=== PATIENT | male | born 1965 | race Caucasian/White ===

== ENCOUNTER 2017-04-30 15:02 | Inpatient (IN) | payer OTHER ==
[2017-04-30] VITALS (8 sets, daily range): BP systolic 153–212; BP diastolic 94–111; PULSE 64–119; RESP 16–20; TEMP 97.3–98.6; O2SAT 96–99
[~2017-04-30] VITALS: Ht 182.9 cm; Wt 104.0 kg
[~2017-04-30 15:02] MED LIST: BENA25TA8 PO; EPIP0.3I IM; MEDR4PAK3 PO
[2017-04-30] MEDS ORDERED: SODIUM CHLORIDE 0.9% FLUSH 10 ML FLUSH IVF PRN ×2 (15:30)
[2017-04-30] MEDS ORDERED: cloNIDine HCL 0.2 MG TAB PO ONE ×2 (15:30)
[2017-04-30] MEDS ORDERED: ASPIRIN 325 MG TAB PO ONE ×2 (15:30)
--- NOTE | 2017-04-30 15:34 | PD ---
HPI Chief Complaint: Chest Pain Time Seen by Provider: 15:18 Travel History International Travel<30 days: No Contact w/Intl Traveler<30days: No Traveled to known affect area: No History of Present Illness HPI This patient complains of chest pain. He has spells of pain most days over the last month. Symptoms are not limited to exertion. Spells last 5-10 minutes and resolve spontaneously. Location is center sternum. He feels a pain and a pressure and tightness. Pain is not pleuritic. No fever or productive cough. He has history of hypertension and is a smoker has family history of CAD. He denies drug use. He does drink at least 3 alcoholic drink daily but often many more. No history of personal cardiac disease. Never had stress testing. He has heartburn but his chest pain is very different. No alleviating factors. Symptoms have no exacerbating factors. PFSH Past Medical History Diminished Hearing: No Hypertension: Yes Past Surgical History Other Surgery: Yes (RIGHT TESTICLE REMOVED FOR CANCER 1995) Social History Alcohol Use: Yes (DAILY) Tobacco Use: Yes (1 PACK PER DAY) Substance Use: No Allergies-Medications (Allergen,Severity, Reaction): Coded Allergies: No Known Allergies (Unverified Adverse Reaction, Unknown, 04/30/17) Reported Meds & Prescriptions Reported Meds & Active Scripts Active No Active Prescriptions or Reported Medications Review of Systems General / Constitutional: No: Fever Eyes: No: Visual changes HENT: No: Headaches Cardiovascular: Positive: Chest Pain or Discomfort Respiratory: No: Shortness of Breath Gastrointestinal: No: Abdominal Pain Genitourinary: No: Dysuria Musculoskeletal: No: Pain Skin: No Rash Neurologic: No: Weakness Psychiatric: No: Depression Endocrine: No: Polydipsia Hematologic/Lymphatic: No: Easy Bruising Physical Exam Narrative GENERAL: Well-nourished, well-developed patient in no apparent distress. SKIN: Focused skin assessment reveals no rash and nodules. Skin is Warm and dry. HEAD: Atraumatic. Normocephalic. EYES: Pupils equal and round. No scleral icterus. No injection or drainage. ENT: No nasal bleeding or discharge. Mucous membranes pink and moist. NECK: Trachea midline. No JVD. CARDIOVASCULAR: Regular rate and rhythm. No murmur appreciated. RESPIRATORY: No accessory muscle use. Clear to auscultation. Breath sounds equal bilaterally. GASTROINTESTINAL: Abdomen soft, non-tender, nondistended. Hepatic and splenic margins not palpable. MUSCULOSKELETAL: No obvious deformities. No clubbing. No cyanosis. No edema. NEUROLOGICAL: Awake and alert. No obvious cranial nerve deficits. Motor grossly within normal limits. Normal speech. PSYCHIATRIC: Appropriate mood and affect; insight and judgment normal. Data Data Last Documented VS Vital Signs Date Time Temp Pulse Resp B/P (MAP) Pulse Ox O2 Delivery O2 Flow Rate FiO2 04/30/17 16:39 85 20 183/110 (134) 99 04/30/17 15:09 98.6 Orders Orders Electrocardiogram (04/30/17 15:08) Electrocardiogram (04/30/17:28) Basic Metabolic Panel (Bmp) (04/30/17:) Ckmb (Isoenzyme) Profile (04/30/17:28) Complete Blood Count With Diff (04/30/17:) Prothrombin Time / Inr (Pt) (04/30/17:) Act Partial Throm Time (Ptt) (04/30/17:) Troponin I (04/30/17:28) Chest, Single Ap (04/30/17:28) Ecg Monitoring (04/30/17 15:28) Iv Access Insert/Monitor (04/30/17:) Oximetry (04/30/17:28) Aspirin (Aspirin) (04/30/17 15:30) Sodium Chloride 0.9% Flush (Ns Flush) (04/30/17 15:30) Clonidine (Catapres) (04/30/17 15:30) CKMB (04/30/17 15:35) CKMB% (04/30/17 15:35) Place In Observation (04/30/17 ) Vital Signs (Adult) Q4H (04/30/17 17:03) Activity Oob Ad More (04/30/17 17:03) Entry Level Lab Technician / Telemetry .CONTINUOUS (04/30/17 17:03) Diet Heart Healthy (04/30/17 Dinner) Sodium Chloride 0.9% Flush (Ns Flush) (04/30/17 17:15) Sodium Chloride 0.9% Flush (Ns Flush) (04/30/17 21:00) Acetaminophen (Tylenol) (04/30/17 17:15) Ondansetron Inj (Zofran Inj) (04/30/17 17:15) Basic Metabolic Panel (Bmp) (05/01/17 06:00) Comprehensive Metabolic Panel (05/01/17 06:00) Resp Oxygen Diego C Titrat 1-4 L (04/30/17 ) Scd Bilateral/Knee High DENILSON.BID (04/30/17 17:03) Naloxone Inj (Narcan Inj) (04/30/17 17:15) Docusate Sodium-Senna (Carrie-Colace) (04/30/17 21:00) Magnesium Hydroxide Liq (Milk Of Magnesi (04/30/17 17:15) Sennosides (Senokot) (04/30/17 17:15) Lactulose Liq (Lactulose Liq) (04/30/17 17:15) Hydrochlorothiazide (Microzide) (04/30/17 17:15) Lisinopril (Prinivil) (04/30/17 17:15) Clonidine (Catapres) (04/30/17 17:15) Admit Order (Ed Use Only) (04/30/17 17:09) Labs Laboratory Tests Test 04/30/17 15:35 White Blood Count 12.5 TH/MM3 Red Blood Count 5.17 MIL/MM3 Hemoglobin 15.4 GM/DL Hematocrit 45.5 % Mean Corpuscular Volume 87.9 FL Mean Corpuscular Hemoglobin 29.7 PG Mean Corpuscular Hemoglobin Concent 33.8 % Red Cell Distribution Width 14.1 % Platelet Count 232 TH/MM3 Mean Platelet Volume 10.0 FL Neutrophils (%) (Auto) 74.9 % Lymphocytes (%) (Auto) 17.1 % Monocytes (%) (Auto) 5.4 % Eosinophils (%) (Auto) 2.1 % Basophils (%) (Auto) 0.5 % Neutrophils # (Auto) 9.3 TH/MM3 Lymphocytes # (Auto) 2.1 TH/MM3 Monocytes # (Auto) 0.7 TH/MM3 Eosinophils # (Auto) 0.3 TH/MM3 Basophils # (Auto) 0.1 TH/MM3 CBC Comment DIFF FINAL Differential Comment Prothrombin Time 10.9 SEC Prothromb Time International Ratio 1.0 RATIO Activated Partial Thromboplast Time 29.1 SEC Blood Urea Nitrogen 12 MG/DL Creatinine 0.89 MG/DL Random Glucose 180 MG/DL Calcium Level 8.9 MG/DL Sodium Level 138 MEQ/L Potassium Level 4.1 MEQ/L Chloride Level 104 MEQ/L Carbon Dioxide Level 23.8 MEQ/L Anion Gap 10 MEQ/L Estimat Glomerular Filtration Rate 90 ML/MIN Total Creatine Kinase 122 U/L Creatine Kinase MB 1.7 NG/ML Troponin I 0.09 NG/ML MDM Medical Decision Making Medical Screen Exam Complete: Yes Emergency Medical Condition: Yes Medical Record Reviewed: Yes Differential Diagnosis Differential diagnosis includes IA, angina, pericarditis, pleurisy, GERD, anxiety. Narrative Course I have reviewed the patient's electronic medical record. Patient was seen here 2014 for angioedema IV placed I reviewed the EKG which shows sinus rhythm and no acute ST elevation I reviewed the chest x-ray which is normal Extended cardiac monitoring shows sinus rhythm without ectopy CBC is normal Metabolic profile is normal CK is normal Troponin is slightly elevated at 0.09, questional significance to that Coagulation studies are normal I gave him an aspirin and a dose of clonidine for accelerated hypertension, 211 systolic Repeat blood pressure 170 systolic. He is currently chest pain-free. I reviewed with the hospitalist. He will be a 23 are observation on telemetry to evaluate for cardiac cause of his symptoms. Diagnosis Primary Impression: Chest pain in adult Additional Impressions: Accelerated hypertension Troponin I above reference range Admitting Information Admitting Physician Requests: Observation Scripts No Active Prescriptions or Reported Meds Miky Santo MD Apr 30, 2017 15:34
[2017-04-30 15:49] LABS: AUTOMATED NEUTROPHIL # 9.3 TH/MM3 (1.8-7.7); BASOPHIL # 0.1 TH/MM3 (0-0.2); BASOPHIL % 0.5 % (0.0-2.0); EOSINOPHIL # 0.3 TH/MM3 (0-0.4); EOSINOPHIL % 2.1 % (0.0-4.0); HEMATOCRIT 45.5 % (39.0-51.0); HEMOGLOBIN 15.4 GM/DL (13.0-17.0); LYMPH % 17.1 % (9.0-44.0); LYMPHOCYTE # 2.1 TH/MM3 (1.0-4.8); MEAN CELL VOLUME 87.9 FL (80.0-100.0); MEAN CORPUSCULAR HEMOGLOBIN 29.7 PG (27.0-34.0); MEAN CORPUSCULAR HGB CONC 33.8 % (32.0-36.0); MONO % 5.4 % (0.0-8.0); MONOCYTE # 0.7 TH/MM3 (0-0.9); NEUT % 74.9 % (16.0-70.0); PLATELET COUNT 232 TH/MM3 (150-450); RED BLOOD COUNT 5.17 MIL/MM3 (4.50-5.90); RED CELL DISTRIBUTION WIDTH 14.1 % (11.6-17.2); WHITE BLOOD COUNT 12.5 TH/MM3 (4.0-11.0)
[2017-04-30 16:01] LABS: CHLORIDE 104 MEQ/L (98-107); SODIUM (NA) 138 MEQ/L (136-145)
[2017-04-30 16:03] LABS: CALCIUM 8.9 MG/DL (8.5-10.1)
[2017-04-30 16:04] LABS: BICARBONATE 23.8 MEQ/L (21.0-32.0); BLOOD UREA NITROGEN 12 MG/DL (7-18); GLUCOSE,RANDOM 180 MG/DL (74-106)
[2017-04-30 16:08] LABS: CREATININE 0.89 MG/DL (0.60-1.30); GLOMERULAR FILTRATION RATE 90 ML/MIN (>89); PROTHROMBIN TIME - PATIENT 10.9 SEC (9.8-11.6)
[2017-04-30 16:12] LABS: TROPONIN I 0.09 NG/ML (0.02-0.05)
--- NOTE | 2017-04-30 16:29 | RADRPT ---
EXAM DATE/TIME: 04/30/2017 15:53 [facility] COMPARISON: No previous studies available for comparison. INDICATIONS : Chest pain, difficulty breathing for 1 month MEDICAL HISTORY : None. SURGICAL HISTORY : None. ENCOUNTER: Initial ACUITY: 1 month PAIN SCORE: 6/10 LOCATION: Bilateral chest FINDINGS: A single view of the chest demonstrates the lungs to be symmetrically aerated without evidence of mas s, infiltrate or effusion. The cardiomediastinal contours are unremarkable. Osseous structures are intact. CONCLUSION: No acute disease. Segundo Grover MD on April 30, 2017 at 16:27 Board Certified Radiologist. This report was verified electronically.
[2017-04-30] MEDS ORDERED: NALOXONE HCL 0.4 MG/ML AMP IV PUSH PRN ×2 (17:15)
[2017-04-30] MEDS ORDERED: MAGNESIUM HYDROXIDE SUSP 30 ML CUP PO PRN ×2 (17:15)
[2017-04-30] MEDS ORDERED: SODIUM CHLORIDE 0.9% FLUSH 10 ML FLUSH IV FLUSH PRN ×2 (17:15)
[2017-04-30] MEDS ORDERED: ONDANSETRON HCL 4 MG/2 ML VIAL IVP PRN ×2 (17:15)
[2017-04-30] MEDS ORDERED: LACTULOSE SYRUP 20 GM/30 ML CUP PO PRN ×2 (17:15)
[2017-04-30] MEDS ORDERED: ACETAMINOPHEN 325 MG TAB PO PRN ×2 (17:15)
[2017-04-30] MEDS ORDERED: SENNOSIDES 8.6 MG TAB PO PRN ×2 (17:15)
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
[2017-04-30] MEDS: NITROGLYCERIN 2% OINT 1 GM PACKET TOPICAL SCH ×2 (18:00)
[2017-04-30] MEDS: LISINOPRIL 10 MG TAB PO SCH ×2 (18:12)
[2017-04-30] MEDS: HYDROCHLOROTHIAZIDE 12.5 MG CAP PO SCH ×2 (18:12)
[2017-04-30 18:38] LABS: TROPONIN I 0.09 NG/ML (0.02-0.05)
[2017-04-30] MEDS: SODIUM CHLORIDE 0.9% FLUSH 10 ML FLUSH IV FLUSH SCH ×2 (21:40)
[2017-04-30] MEDS: DOCUSATE SODIUM 50 MG/SENNA 8.6 MG TAB PO SCH ×2 (21:41)
[2017-04-30 21:54] LABS: TROPONIN I 0.08 NG/ML (0.02-0.05)
[2017-04-30 23:33] LABS: CHOLESTEROL 217 MG/DL (120-200); TRIGLYCERIDES 130 MG/DL (42-150)
[2017-04-30 23:34] LABS: CHOLESTEROL/ HDL RATIO 3.76 RATIO; HDL CHOLESTEROL 57.6 MG/DL (40.0-60.0); LDL CHOLESTEROL 133 MG/DL (0-99)
[2017-05-01] VITALS (14 sets, daily range): BP systolic 120–181; BP diastolic 78–111; PULSE 55–76; RESP 14–20; TEMP 95.7–98.4; O2SAT 96–99
[2017-05-01] MEDS: NITROGLYCERIN 2% OINT 1 GM PACKET TOPICAL SCH ×10 (03:06→23:35)
[2017-05-01] MEDS: SODIUM CHLORIDE 0.9% FLUSH 10 ML FLUSH IV FLUSH SCH ×4 (07:43→21:10)
[2017-05-01] MEDS: DOCUSATE SODIUM 50 MG/SENNA 8.6 MG TAB PO SCH ×4 (07:44→21:10)
[2017-05-01] MEDS: HYDROCHLOROTHIAZIDE 12.5 MG CAP PO SCH ×2 (07:44)
[2017-05-01] MEDS: LISINOPRIL 10 MG TAB PO SCH ×2 (07:44)
[2017-05-01] MEDS: ASPIRIN 325 MG TAB PO SCH ×2 (07:44)
[2017-05-01 07:51] LABS: CHLORIDE 104 MEQ/L (98-107); SODIUM (NA) 139 MEQ/L (136-145)
[2017-05-01 07:54] LABS: CALCIUM 9.1 MG/DL (8.5-10.1)
[2017-05-01 07:55] LABS: ALBUMIN 3.7 GM/DL (3.4-5.0); BICARBONATE 27.1 MEQ/L (21.0-32.0); BLOOD UREA NITROGEN 14 MG/DL (7-18); GLUCOSE,RANDOM 118 MG/DL (74-106)
[2017-05-01 07:58] LABS: ALT (GPT) 33 U/L (12-78); AST (GOT) 15 U/L (15-37); CREATININE 0.91 MG/DL (0.60-1.30); GLOMERULAR FILTRATION RATE 88 ML/MIN (>89)
[2017-05-01 07:59] LABS: TOTAL BILIRUBIN ADULT 0.4 MG/DL (0.2-1.0); TOTAL PROTEIN 7.4 GM/DL (6.4-8.2)
[2017-05-01 08:01] LABS: ALKALINE PHOSPHATASE 97 U/L (45-117)
--- NOTE | 2017-05-01 08:50 | HHI.PR ---
Subjective Remarks Follow up chest pain. Patient seen and examined, lying in bed comfortably. Awake and alert. Complaints of mild chest discomfort, states it continues to come and go, less severity than before. Denies any new acute complaints. Slept well. Afebrile. Awaiting stress test today. Objective Vitals Vital Signs Date Time Temp Pulse Resp B/P (MAP) Pulse Ox O2 Delivery O2 Flow Rate FiO2 05/01/17 03:56 98.2 63 18 152/79 (103) 98 05/01/17 00:36 98.0 68 20 150/85 (106) 99 04/30/17 21:11 98.4 64 18 153/94 (113) 97 04/30/17 20:52 96 21 04/30/17 18:00 97 21 04/30/17 17:51 97.3 76 16 157/97 (117) 97 04/30/17 17:49 04/30/17 17:19 83 18 166/97 (120) 96 04/30/17 16:39 85 20 183/110 (134) 99 04/30/17 15:38 96 04/30/17 15:09 98.6 119 20 212/111 (144) 96 Result Diagram: 04/30/17 1535 05/01/17 0655 Imaging Last Impressions Chest X-Ray 04/30/17 1528 Signed Impressions: Service Date/Time: Sunday, April 30, 2017 15:53 - CONCLUSION: No acute disease. Segundo Grover MD Objective Remarks GENERAL: This is a well-nourished, well-developed patient, in no apparent distress. SKIN: No rashes, ecchymoses or lesions. Cool and dry. HEAD: Atraumatic. Normocephalic. No temporal or scalp tenderness. EYES: Pupils equal round and reactive. Extraocular motions intact. No scleral icterus. No injection or drainage. ENT: Nose without bleeding, purulent drainage or septal hematoma. Throat without erythema, tonsillar hypertrophy or exudate. Uvula midline. Airway patent. NECK: Trachea midline. No JVD or lymphadenopathy. Supple, nontender, no meningeal signs. CARDIOVASCULAR: Regular rate and rhythm without murmurs, gallops, or rubs. RESPIRATORY: Clear to auscultation. Breath sounds equal bilaterally. No wheezes , rales, or rhonchi. GASTROINTESTINAL: Abdomen soft, non-tender, nondistended. No guarding. MUSCULOSKELETAL: Extremities without clubbing, cyanosis, or edema. No joint tenderness, effusion, or edema noted. NEUROLOGICAL: Awake and alert. Cranial nerves II through XII intact. Motor and sensory grossly within normal limits. Five out of 5 muscle strength in all muscle groups. Normal speech. A/P Problem List: (1) Chest pain in adult ICD Code: R07.9 - Chest pain, unspecified Status: Acute Plan: Serial troponins and serial EKGs ordered for ruling out purposes. Troponin trend slightly elevated and flat. EKG reviewed showing SR HR 97, possibly LVH, no ST elevation. Continue to control pain, Nitroglycerin patch. Supplemental O2 to keep Sats > 92%. Lipid panel reviewed, cholesterol 217 and LDL 133. Continue cardiac telemetry. CXR reviewed showing no acute disease. Continue Aspirin 325 mg PO daily. Nuclear stress test ordered to rule out any ischemia. Will follow results of nuclear imaging, further treatment to follow. Patient stable at this time and agreeable to plan. (2) Accelerated hypertension ICD Code: I10 - Essential (primary) hypertension Status: Acute Plan: BP significantly elevated on presentation. Continue Nitroglycerin patch and HCTZ/Lisinopril. Follow BP trends closely. Control pain. Systolic BP's in the 150's. Clonidine ordered PRN as needed. (3) Elevated random blood glucose level ICD Code: R73.09 - Other abnormal glucose Plan: BMP reviewed showing random glucose 190. hemoglobin a1C pending. Follow. (4) Tobacco abuse ICD Code: Z72.0 - Tobacco use Plan: Encouraged cessation, patient counseled. Offered Nicotine patch, patient refused at this time. (5) Hyperlipidemia ICD Code: E78.5 - Hyperlipidemia, unspecified Plan: Lipid panel reviewed showing slight elevation of LDL and cholesterol. Will start on Atorvastatin 20 mg PO HS. Assessment and Plan Nuclear stress test results reviewed showing cardiomyopathy with low EF 32%. Called Dr. Wilson, cardiology plant control operator and updated about patient status and work up. Orders to transfer to the main to undergo a cardiac catheterization. BP continues to be elevated, Clonidine PRN given, will continue to monitor. Placed on beta alexander, atorvastatin, lisinopril/HCTZ and nitro paste. Continue cardiac telemetry. Patient is stable at this time and agreeable to the plan. Justine Keating May 01, 2017 08:50
[2017-05-01 11:29] LABS: HEMOGLOBIN A1C 6.1 % (4.3-6.0)
[2017-05-01] MEDS ORDERED: REGADENOSON INJ 0.4 MG/5 ML SYR IV ONE ×2 (11:39)
--- NOTE | 2017-05-01 12:20 | RADRPT ---
EXAM DATE/TIME: 05/01/2017 11:03 [facility] COMPARISON: No previous studies available for comparison. INDICATIONS : Substernal chest pain radiating down left arm. Angina. DOSE: 35 mCi Tc99m Myoview at stress. 11 mCi Tc99m Myoview at rest. 0.4 mg Lexiscan STRESS SYMPTOMS: Shortness of breath, chest pressure. EJECTION FRACTION: 32% MEDICAL HISTORY : Hypertension. Testicular cancer. SURGICAL HISTORY : Right ankle surgery and testicular cancer removed. ENCOUNTER: Initial ACUITY: 2 days PAIN SCALE: 5/10 LOCATION: Substernal chest TECHNIQUE: The patient underwent pharmacologic stress with infusion of prescribed dose. Continuous ECG tracing was monitored during stress. Gated SPECT imaging was performed after stress and conventional SPECT i maging was performed at rest. The examination was performed on a SPECT/CT scanner, both attenuation and non-corrected datasets were reviewed. FINDINGS: DISTRIBUTION: The maximum perfused segment at stress is in the anterolateral wall. PERFUSION STUDY: There is a small fixed defect in the inferolateral wall. The pattern of perfusion at stress is within normal limits. GATED STUDY: There is global hypokinesia with more probably affecting the inferior wall with significantly reduced ejection fraction. CONCLUSION: 1. Small fixed inferolateral wall defect. 2. No significant stress induced perfusion abnormality. 3. Global hypokinesia and ventriculomegaly with EF of 32%. RISK CATEGORY: High (>3% Annual Mortality Rate) Jono Garcia MD on May 01, 2017 at 12:14 Board Certified Radiologist. This report was verified electronically.
[2017-05-01] MEDS: cloNIDine HCL 0.1 MG TAB PO PRN ×2 (12:27)
[2017-05-01] MEDS: METOPROLOL TARTRATE 25 MG TAB PO SCH ×4 (13:53→21:10)
--- NOTE | 2017-05-01 20:15 | MB ---
cc: DOMINIC GARZA M.D. DATE OF CONSULTATION 05/01/17 HISTORY OF PRESENT ILLNESS Eugene is a very pleasant 52 year old gentleman who smokes who has been experiencing substernal chest pain for the last month prior to admission. It was recently described as a severe substernal chest pain with severe arm pain. It occurred while he was "ripping out a deck". It is also associated with shortness of breath. Currently he is resting comfortably. He presented to the [place] emergency room with severe hypertension with blood pressure 212/111 with a heart rate of 119. He otherwise denies any fevers, chills, cough, or GI bleeding, orthopnea, syncope or dizziness. PAST MEDICAL HISTORY Per history of present illness. 1. Right testicle removed for cancer 1995, 2. History of hypertension. SOCIAL HISTORY He drinks alcohol daily. Smokes a pack of cigarettes a day. ALLERGIES None MEDICATIONS In the hospital 1. Atorvastatin 28 hs 2. Metoprolol 25 q.12 h 3. Aspirin 325 daily 4. Half inch nitro paste q.6 h, 5. Hydrochlorothiazide 12.5 daily, 6. Lisinopril 10 daily. PHYSICAL EXAMINATION VITAL SIGNS: Blood pressure 122/87, pulse 72, temperature 98.1, respiratory rate 18. GENERAL: He is alert and oriented times three in no acute distress NECK: Supple. No JVD or bruit CARDIOVASCULAR: S1, S2 No murmurs, rubs or gallops. LUNGS: Clear to auscultation bilaterally. ABDOMEN: Soft, nontender, nondistended with positive bowel sounds. Extremities: No lower extremity edema. LABORATORY DATA White count 12.5, hemoglobin 15.4, hematocrit 45.5, platelet count 232. Sodium 139, potassium 4.2, chloride 104, bicarb 27.1, BUN 14, creatinine 0.91, hemoglobin A1c is 6.1, CPK is negative x3. Initial troponin 0.09 followed by 0.09 and 0.08, LDL is 133, HDL 57.6, INR is 1.0. CARDIOLOGY STUDIES Nuclear stress test shows a small fixed inferolateral wall defect global hypokinesis of ventriculomegaly, ejection fraction of 32%. IMAGING STUDIES Chest x-ray - No acute disease. EKG on admission normal sinus rhythm at 97 beats per minute, small inferior Q-wave in lead 3, nonspecific ST-T wave changes, possible anterolateral ischemia. DIAGNOSES 1. Non STEMI 2. Hypertension. 3. Tobacco use. 4. Alcohol abuse 5. Abnormal nuclear stress test 6. Cardiomyopathy. 7. Hypertension. 8. Diabetes mellitus. 9. Hyperlipidemia. 10. Elevated white count 11. Abnormal EKG. DISCUSSION At this point in time, the patient is being treated with optimal medical therapy with aspirin, Lopressor, lisinopril, nitro paste and Lipitor. He is asymptomatic. His blood pressure is much better controlled. I have strongly counseled him to stop smoking. He does have a high pretest probability for significant coronary artery disease and a cardiomyopathy. Therefore, I do think right and left heart catheterization are medically necessary which we will schedule for Wednesday05/02/2017 unless the patient develops hemodynamic instability and/or chest pain refractory to medical management. MD MIKE Brooks/ /6:04 PM /7:59 PM
[2017-05-01] MEDS: ATORVASTATIN 20 MG TAB PO SCH ×2 (21:10)
[2017-05-02] VITALS (31 sets, daily range): BP systolic 131–169; BP diastolic 78–106; PULSE 54–86; RESP 16–18; TEMP 97.8–98.1; O2SAT 96–98
[2017-05-02] MEDS: NITROGLYCERIN 2% OINT 1 GM PACKET TOPICAL SCH ×8 (05:09→23:57)
[2017-05-02] MEDS: LISINOPRIL 10 MG TAB PO SCH ×2 (08:09)
[2017-05-02] MEDS: METOPROLOL TARTRATE 25 MG TAB PO SCH ×4 (08:10→20:32)
[2017-05-02] MEDS: SODIUM CHLORIDE 0.9% FLUSH 10 ML FLUSH IV FLUSH SCH ×4 (08:10→20:33)
[2017-05-02] MEDS: HYDROCHLOROTHIAZIDE 12.5 MG CAP PO SCH ×2 (08:10)
[2017-05-02] MEDS: ASPIRIN 325 MG TAB PO SCH ×2 (08:10)
[2017-05-02] MEDS: DOCUSATE SODIUM 50 MG/SENNA 8.6 MG TAB PO SCH ×4 (08:10→20:32)
--- NOTE | 2017-05-02 08:22 | HHI.PR ---
Subjective Remarks Patient seen and examined this morning. Afebrile vital signs stable. Patient is having some chest pain on admission that has improved greatly. He continues to feel some mild chest pain with activity. He understands the plan of care is for him to go to the cardiac [facility] on Wednesday05/03/17. He is hopeful for good results from the procedure. No other complaints at this time. Objective Vitals Vital Signs Date Time Temp Pulse Resp B/P (MAP) Pulse Ox O2 Delivery O2 Flow Rate FiO2 05/02/17 06:00 62 05/02/17 05:00 54 05/02/17 05:00 57 16 138/78 (98) 96 05/02/17 04:00 54 05/02/17 03:00 55 05/02/17 02:00 56 05/02/17 01:00 56 05/02/17 00:47 96 21 05/02/17 00:00 56 05/01/17 23:30 57 18 124/78 (93) 98 05/01/17 23:00 57 05/01/17 22:00 58 05/01/17 21:00 62 05/01/17 20:00 98.4 67 16 120/80 (93) 97 05/01/17 20:00 68 05/01/17 19:00 70 05/01/17 18:13 76 05/01/17 17:05 67 05/01/17 16:25 98.1 72 18 122/87 (99) 96 05/01/17 16:25 60 05/01/17 13:53 157/101 (119) 05/01/17 12:00 95.7 55 16 172/101 (124) 97 I/O 05/01/17 05/01/17 05/01/17 05/02/17 05/02/17 05/02/17 07:00 15:00 23:00 07:00 15:00 23:00 Intake Total 240 ml 300 ml Balance 240 ml 300 ml Intake Oral 240 ml 300 ml # Voids 4 2 # Bowel Movements 0 0 Result Diagram: 04/30/17 1535 05/01/17 0655 Imaging Last Impressions Myocardial Perfusion Scan Nuc Med 05/01/17 0000 Signed Impressions: Service Date/Time: Monday, May 01, 2017 11:03 - CONCLUSION: 1. Small fixed inferolateral wall defect. 2. No significant stress induced perfusion abnormality. 3. Global hypokinesia and ventriculomegaly with EF of 32%%. RISK CATEGORY: High (>3%% Annual Mortality Rate) Jono Garcia MD Chest X-Ray 04/30/17 1528 Signed Impressions: Service Date/Time: Sunday, April 30, 2017 15:53 - CONCLUSION: No acute disease. Segundo Grover MD Objective Remarks GEN: Well-developed, well-nourished patient. No acute distress. CV: Regular rate and rhythm without obvious murmurs LUNGS: Clear to auscultation bilaterally. Normal respiratory effort. No wheezes , rales, rhonchi. GI: Soft, nontender, nondistended. No palpable masses. Bowel sounds WNL. EXT: No edema. NEURO/PSYCH: Afocal. Awake, alert, and oriented x3. Appropriate insight and judgment. Procedures Cardiac catheterization on 05/03/17 Medications and IVs Current Medications Medications (Trade) Dose Ordered Sig/Lindsay Route Start Time Stop Time Status Last Admin (NS Flush) 2 ml UNSCH PRN IVF 04/30/17 15:30 (NS Flush) 2 ml UNSCH PRN IV FLUSH 04/30/17 17:15 (NS Flush) 2 ml BID IV FLUSH 04/30/17 21:00 05/02/17 08:10 (Tylenol) 650 mg Q4H PRN PO 04/30/17 17:15 (Zofran Inj) 4 mg Q6H PRN IVP 04/30/17 17:15 (Narcan Inj) 0.4 mg UNSCH PRN IV PUSH 04/30/17 17:15 (Carrie-Colace) 1 tab BID PO 04/30/17 21:00 05/02/17 08:10 (Milk Of Magnesia Liq) 30 ml Q12H PRN PO 04/30/17 17:15 (Senokot) 17.2 mg Q12H PRN PO 04/30/17 17:15 (Lactulose Liq) 30 ml DAILY PRN PO 04/30/17 17:15 (Microzide) 12.5 mg DAILY PO 04/30/17 17:15 05/02/17 08:10 (Prinivil) 10 mg DAILY PO 04/30/17 17:15 05/02/17 08:09 (Catapres) 0.1 mg Q6H PRN PO 04/30/17 17:15 05/01/17 12:27 (Nitroglycerin 2% Oint) 0.5 inch Q6HR TOPICAL 04/30/17 18:00 05/02/17 05:09 (Aspirin) 325 mg DAILY PO 05/01/17 09:00 05/02/17 08:10 (Lipitor) 20 mg HS PO 05/01/17 21:00 05/01/17 21:10 (Lopressor) 25 mg Q12HR PO 05/01/17 13:30 05/02/17 08:10 A/P Problem List: (1) Chest pain in adult ICD Code: R07.9 - Chest pain, unspecified Status: Acute Plan: Patient presenting with chest pain and elevated troponins. Concern for possible NSTEMI. * observation * Cardiology consulted, recommendations appreciated * Will have cardiac catheterization on Wednesday * Nuclear stress test pending (2) Accelerated hypertension ICD Code: I10 - Essential (primary) hypertension Status: Acute Plan: BP significantly elevated on presentation. Continue Nitroglycerin patch and HCTZ/Lisinopril. Follow BP trends closely. Control pain. Clonidine ordered PRN as needed. (3) Elevated random blood glucose level ICD Code: R73.09 - Other abnormal glucose Plan: Hemoglobin A1c is 6.1. We'll just monitor at this time (4) Tobacco abuse ICD Code: Z72.0 - Tobacco use Plan: Encouraged cessation, patient counseled. Offered Nicotine patch, patient refused at this time. (5) Hyperlipidemia ICD Code: E78.5 - Hyperlipidemia, unspecified Plan: Lipid panel reviewed showing slight elevation of LDL and cholesterol. Continue Atorvastatin 20 mg PO HS. Diet: Heart healthy diet Fluids: By mouth intake Monitor electrolytes Placed on telemetry Vitals every 4 DD prophylaxis SCDs and ambulating Javid Quintero MD, R3 May 02, 2017 08:22
--- NOTE | 2017-05-02 10:16 | PD.CARD.PN ---
Subjective Subjective Remarks alert in nad Objective Medications Current Medications Medications (Trade) Dose Ordered Sig/Lindsay Route Start Time Stop Time Status Last Admin (NS Flush) 2 ml UNSCH PRN IVF 04/30/17 15:30 (NS Flush) 2 ml UNSCH PRN IV FLUSH 04/30/17 17:15 (NS Flush) 2 ml BID IV FLUSH 04/30/17 21:00 05/02/17 08:10 (Tylenol) 650 mg Q4H PRN PO 04/30/17 17:15 (Zofran Inj) 4 mg Q6H PRN IVP 04/30/17 17:15 (Narcan Inj) 0.4 mg UNSCH PRN IV PUSH 04/30/17 17:15 (Carrie-Colace) 1 tab BID PO 04/30/17 21:00 05/02/17 08:10 (Milk Of Magnesia Liq) 30 ml Q12H PRN PO 04/30/17 17:15 (Senokot) 17.2 mg Q12H PRN PO 04/30/17 17:15 (Lactulose Liq) 30 ml DAILY PRN PO 04/30/17 17:15 (Microzide) 12.5 mg DAILY PO 04/30/17 17:15 05/02/17 08:10 (Prinivil) 10 mg DAILY PO 04/30/17 17:15 05/02/17 08:09 (Catapres) 0.1 mg Q6H PRN PO 04/30/17 17:15 05/01/17 12:27 (Nitroglycerin 2% Oint) 0.5 inch Q6HR TOPICAL 04/30/17 18:00 05/02/17 05:09 (Aspirin) 325 mg DAILY PO 05/01/17 09:00 05/02/17 08:10 (Lipitor) 20 mg HS PO 05/01/17 21:00 05/01/17 21:10 (Lopressor) 25 mg Q12HR PO 05/01/17 13:30 05/02/17 08:10 Vital Signs / I&O Vital Signs Date Time Temp Pulse Resp B/P (MAP) Pulse Ox O2 Delivery O2 Flow Rate FiO2 05/02/17 09:01 98.1 69 18 138/96 (110) 98 05/02/17 07:01 84 05/02/17 06:00 62 05/02/17 05:00 54 05/02/17 05:00 57 16 138/78 (98) 96 05/02/17 04:00 54 05/02/17 03:00 55 05/02/17 02:00 56 05/02/17 01:00 56 05/02/17 00:47 96 21 05/02/17 00:00 56 05/01/17 23:30 57 18 124/78 (93) 98 05/01/17 23:00 57 05/01/17 22:00 58 05/01/17 21:00 62 05/01/17 20:00 98.4 67 16 120/80 (93) 97 05/01/17 20:00 68 05/01/17 19:00 70 05/01/17 18:13 76 05/01/17 17:05 67 05/01/17 16:25 98.1 72 18 122/87 (99) 96 05/01/17 16:25 60 05/01/17 13:53 157/101 (119) 05/01/17 12:00 95.7 55 16 172/101 (124) 97 I/O 05/01/17 05/01/17 05/01/17 05/02/17 05/02/17 05/02/17 07:00 15:00 23:00 07:00 15:00 23:00 Intake Total 240 ml 300 ml Balance 240 ml 300 ml Intake Oral 240 ml 300 ml # Voids 4 2 # Bowel Movements 0 0 Physical Exam GENERAL: SKIN: Warm and dry. HEAD: Normocephalic. EYES: No scleral icterus. No injection or drainage. NECK: Supple, trachea midline. No JVD or lymphadenopathy. CARDIOVASCULAR: Regular rate and rhythm without murmurs, gallops, or rubs. RESPIRATORY: Breath sounds equal bilaterally. No accessory muscle use. GASTROINTESTINAL: Abdomen soft, non-tender, nondistended. MUSCULOSKELETAL: No cyanosis, or edema. BACK: Nontender without obvious deformity. No CVA tenderness. Assessment and Plan Problem List: (1) NSTEMI (non-ST elevated myocardial infarction) ICD Codes: I21.4 - Non-ST elevation (NSTEMI) myocardial infarction (2) Tobacco abuse ICD Codes: Z72.0 - Tobacco use (3) Chest pain in adult ICD Codes: R07.9 - Chest pain, unspecified Status: Acute (4) Troponin I above reference range ICD Codes: R74.8 - Abnormal levels of other serum enzymes Status: Acute (5) Accelerated hypertension ICD Codes: I10 - Essential (primary) hypertension Status: Acute (6) Elevated random blood glucose level ICD Codes: R73.09 - Other abnormal glucose (7) Hypercholesteremia ICD Codes: E78.00 - Pure hypercholesterolemia, unspecified (8) Hyperlipidemia ICD Codes: E78.5 - Hyperlipidemia, unspecified Assessment and Plan 1.) NSTEMI - continue aspirin, lipitor, lopressor, [facility] 05/03/17 Harmeet Wilson MD May 02, 2017 10:16
--- NOTE | 2017-05-02 11:13 | EKG ---
Date Performed: 04/30/2017 Time Performed: 15:08:10 PTAGE: 52 years EKG: Sinus rhythm POSSIBLE LEFT ATRIAL ENLARGEMENT NONSPECIFIC T-WAVE ABNORMALITY BORDERLINE ECG NO PREVIOUS TRACING DOCTOR: Harmeet Wilson Interpretating Date/Time 05/02/2017 11:11:29
--- NOTE | 2017-05-02 11:13 | EKG ---
Date Performed: 04/30/2017 Time Performed: 21:20:58 PTAGE: 52 years EKG: Sinus rhythm Consider INFERIOR MYOCARDIAL INFARCTION - age indeterminate MODERATE T-WAVE ABNORMALITY, CONSIDER AN TEROLATERAL ISCHEMIA ABNORMAL ECG PREVIOUS TRACING : 04/30/2017 18.00 DOCTOR: Harmeet Wilson Interpretating Date/Time 05/02/2017 11:12:17
--- NOTE | 2017-05-02 11:13 | EKG ---
Date Performed: 04/30/2017 Time Performed: 18:00:45 PTAGE: 52 years EKG: Sinus rhythm Consider INFERIOR MYOCARDIAL INFARCTION - age indeterminate ABNORMAL ECG PREVIOUS TRACING : 04/30/2017 15.08 DOCTOR: Harmeet Wilson Interpretating Date/Time 05/02/2017 11:12:01
[2017-05-02] MEDS: cloNIDine HCL 0.1 MG TAB PO PRN ×2 (11:36)
[2017-05-02] MEDS: ATORVASTATIN 20 MG TAB PO SCH ×2 (20:32)
[2017-05-03] VITALS (24 sets, daily range): BP systolic 122–167; BP diastolic 63–94; PULSE 56–99; RESP 12–18; TEMP 97.4–98.2; O2SAT 96–99
[2017-05-03] MEDS: NITROGLYCERIN 2% OINT 1 GM PACKET TOPICAL SCH ×6 (06:11→19:41)
[2017-05-03 07:15] LABS: HEMATOCRIT 46.2 % (39.0-51.0); HEMOGLOBIN 15.5 GM/DL (13.0-17.0); MEAN CELL VOLUME 90.3 FL (80.0-100.0); MEAN CORPUSCULAR HEMOGLOBIN 30.2 PG (27.0-34.0); MEAN CORPUSCULAR HGB CONC 33.5 % (32.0-36.0); MEAN PLATELET VOLUME 9.8 FL (7.0-11.0); PLATELET COUNT 206 TH/MM3 (150-450); RED BLOOD COUNT 5.12 MIL/MM3 (4.50-5.90); RED CELL DISTRIBUTION WIDTH 14.1 % (11.6-17.2); WHITE BLOOD COUNT 13.4 TH/MM3 (4.0-11.0)
[2017-05-03 07:36] LABS: BICARBONATE 27.2 MEQ/L (21.0-32.0); CALCIUM 9.4 MG/DL (8.5-10.1); CREATININE 0.93 MG/DL (0.60-1.30)
[2017-05-03] MEDS: DOCUSATE SODIUM 50 MG/SENNA 8.6 MG TAB PO SCH ×4 (08:41→21:05)
[2017-05-03] MEDS: HYDROCHLOROTHIAZIDE 12.5 MG CAP PO SCH ×2 (08:42)
[2017-05-03] MEDS: ASPIRIN 325 MG TAB PO SCH ×2 (08:42)
[2017-05-03] MEDS: METOPROLOL TARTRATE 25 MG TAB PO SCH ×4 (08:42→21:05)
[2017-05-03] MEDS: LISINOPRIL 10 MG TAB PO SCH ×2 (08:42)
[2017-05-03] MEDS: SODIUM CHLORIDE 0.9% FLUSH 10 ML FLUSH IV FLUSH SCH ×4 (08:42→21:00)
--- NOTE | 2017-05-03 08:54 | TR ---
Date Performed: 05/01/2017 Time Performed: 11:32:54 DOCTOR: Keshav Park DRUG LIST: CLINICAL HISTORY: ANGINA REASON FOR TEST: REASON FOR ENDING: OBSERVATION: CONCLUSION: Lexiscan stress test was performed under standard four minute protocol. Radionuclid e was injected one minute prior to ending the test. No electrocardiographic abormalities were present to suggest ischemia. Nuclear imaging and interpretation are pending. COMMENTS:
--- NOTE | 2017-05-03 11:21 | HHI.PR ---
Subjective Remarks Pt feels well. Denies any CP/SOB/nausea or vomiting. He tells me that he is scheduled for cardiac cath today around 1:30. Nervous sister at bedside no concerns. He is in the process of finding a PCP Objective Vitals Vital Signs Date Time Temp Pulse Resp B/P (MAP) Pulse Ox O2 Delivery O2 Flow Rate FiO2 05/03/17 06:19 59 05/03/17 05:10 64 05/03/17 04:05 61 05/03/17 03:32 97.4 56 16 127/63 (84) 96 05/03/17 03:00 74 05/03/17 02:00 66 05/03/17 01:01 60 05/03/17 00:35 57 05/02/17 23:56 97.9 64 18 134/82 (99) 98 05/02/17 23:00 62 05/02/17 22:00 68 05/02/17 21:00 64 05/02/17 20:00 66 05/02/17 19:22 97.9 68 18 159/97 (117) 98 05/02/17 19:00 77 05/02/17 18:01 86 05/02/17 17:12 98 05/02/17 17:01 62 05/02/17 16:00 60 05/02/17 15:01 97.8 62 18 131/82 (98) 98 05/02/17 15:00 58 05/02/17 14:32 21 05/02/17 14:00 58 05/02/17 13:01 68 05/02/17 12:00 66 I/O 05/02/17 05/02/17 05/02/17 05/03/17 05/03/17 05/03/17 07:00 15:00 23:00 07:00 15:00 23:00 Intake Total 300 ml 480 ml 240 ml Balance 300 ml 480 ml 240 ml Intake Oral 300 ml 480 ml IV Total 240 ml # Voids 2 4 2 # Bowel Movements 0 2 Result Diagram: 05/03/1760405/03/17604 Imaging Last Impressions Myocardial Perfusion Scan Nuc Med 05/01/17 0000 Signed Impressions: Service Date/Time: Monday, May 01, 2017 11:03 - CONCLUSION: 1. Small fixed inferolateral wall defect. 2. No significant stress induced perfusion abnormality. 3. Global hypokinesia and ventriculomegaly with EF of 32%%. RISK CATEGORY: High (>3%% Annual Mortality Rate) Jono Garcia MD Chest X-Ray 04/30/17 1528 Signed Impressions: Service Date/Time: Sunday, April 30, 2017 15:53 - CONCLUSION: No acute disease. Segundo Grover MD Objective Remarks GEN: appears comfortable, sitting up on recliner CV: Regular rate and rhythm without obvious murmurs LUNGS: Clear to auscultation bilaterally. Normal respiratory effort. No wheezes GI: Soft, nontender, nondistended. Bowel sounds WNL. EXT: No edema. NEURO/PSYCH: Afocal. Awake, alert, and oriented x3. Appropriate insight and judgment. Procedures A/P Problem List: (1) Chest pain in adult ICD Code: R07.9 - Chest pain, unspecified Status: Acute (2) Accelerated hypertension ICD Code: I10 - Essential (primary) hypertension Status: Acute (3) Elevated random blood glucose level ICD Code: R73.09 - Other abnormal glucose (4) Tobacco abuse ICD Code: Z72.0 - Tobacco use (5) Hyperlipidemia ICD Code: E78.5 - Hyperlipidemia, unspecified Assessment and Plan (1) Chest pain in adult Patient presenting with chest pain and elevated troponins. NSTEMI. * Cardiology following and scheduled for cardiac cath on wednesday05/03/17 * Nuclear stress test showing small fixed inferolateral wall defect w global hypokinesia and ventriculomegaly. EF 32%, high risk. * Will order ECHO (2) Accelerated hypertension BP significantly elevated on presentation. Continue Nitroglycerin patch and HCTZ /Lisinopril. BPs much better controlled. Clonidine ordered PRN as needed. (3) Elevated random blood glucose level Hemoglobin A1c is 6.1. monitor at this time (4) Tobacco abuse Encouraged cessation, patient counseled. (5) Hyperlipidemia Lipid panel reviewed showing slight elevation of LDL and cholesterol. Continue Atorvastatin 20 mg PO HS. Diet: Heart healthy diet/fluid restriction Fluids: By mouth intake Monitor electrolytes Placed on telemetry Vitals every 4 DD prophylaxis SCDs and ambulating Discharge Planning pt scheduled for a cardiac cath this pm. ECHO ordered Adeline Mensah MD May 03, 2017 11:21
[2017-05-03] MEDS ORDERED: HEPARIN-NS/PF INJ 1,000 ML ONE ×2 (13:10)
[2017-05-03] MEDS ORDERED: MIDAZOLAM HCL 2 MG/2 ML VIAL ONE ×2 (13:11)
[2017-05-03] MEDS ORDERED: TIROFIBAN INFUSION INJ 250 ML IV ONE ×2 (13:40)
[2017-05-03] MEDS ORDERED: HEPARIN SODIUM - IV 10,000 UNITS/10 ML VIAL ONE ×2 (13:40)
[2017-05-03] MEDS: TIROFIBAN INFUSION INJ 250 ML IV SCH ×2 (13:50)
[2017-05-03] MEDS ORDERED: PRASUGREL 10 MG TAB ONE ×2 (13:54)
--- NOTE | 2017-05-03 14:10 | CATHPROC ---
BO.LT HIS Report Study Information Study Number Admission Scheduled Start Study Start [id number] May 02 2017 10:13AM 05/03/2017 May 03 2017 1:05PM [facility] Service Cardiac Catheterization Admit Source Facility Department Emergency department [facility] - Physician Physician and Clinical Staff Initial Harmeet Mccloud Photoresist Contact Printer Terese Fernandes,RN Recorder Felciiano Bonds,RT(R) Scrub Roddy Murdock,RT(R) Procedures Performed Procedure Location (Site) Vessel Name Coronary Angiograms LCA Left Coronary Coronary Angiograms RCA Right Coronary LV Gram-hand inj. LV LV Ventricle Stent LAD Prox Left Coronary Wire insertion Fem Art (right) Femoral Art Equipment Time Buckle Coverer Description Size Mfg Part Number Used/Scraped [id number] 13:41 [employer] WIRE, ASAGlooko PROWATER 180CM 180CM Used *[id number] 13:23 DAMON INFANTE SWAN NEIDA CATHETER FR 7 Used *[id number] TRANSDUCER, TRUWAVE [id number] 13:16 DAMON INFANTE * Used W/STOCKCOCK *[id number] [id number] *[id number] [id number] *[id number] *[id number] 13:16 MEDLINE [employer] PACK, CCL CUSTOM * Used *[id number] 13:16 [employer] PACER PEN, SKIN DUAL W/ RULER * Used *[id number] 13:45 MEDTRONIC STENT, 3.0 9 INTEGRITY 3.0 9 Used *[id number] 13:46 [employer] MEDICAL 30 TAHIR INDEFLATOR Used *[id number] 13:41 [employer] MEDICAL SHEATH, FR6.5 PRELUDE 11CM FR 6.5 038ACT Used *[id number] 13:22 [employer] MEDICAL SHEATH, FR7.5 PRELUDE 11CM FR 7.5 11CM Used [id number] 13:16 [employer] MEDICAL WIRE, 3MMJ .035 180CM 180CM Used *[id number] 13:16 NAMIC MANIFOLD, 4 PORT * Used *[id number] 13:16 NYCOMED OMNIPAQUE, 350 MG, 150ML 150ML [id number] Used [id number] 13:16 CONDE MEDICAL BLANKET,WARM AIR CCL * Used *[id number] 13:16 TERUMO MEDICAL SHEATH, FR4 TERUMO (10CM) FR 4 Used *[id number] Equipment Model, Serial, Lot Number and Expiration Data Description Model Number Serial Number Lot Number Expiration Date SHEATH, FR6.5 PRELUDE 11CM [id number] 12-26-2019 History: Allergies Allergy Reaction No Known Allergies History: Risk Factors Family History of Hypertension Dyslipidemia Previous [place] Previous Heart Failure Premature CAD Yes Yes Yes No No Prior Valve Prior PCI Prior CABG Surgery No No No Cerebrovascular Peripheral Artery Chronic Lung On Dialysis Diabetes Disease Disease Disease No No No No No History: Stress Tests Stress or Imaging Studies Performed Yes Standard Exercise Stress Test No Stress Echo No Stress Test SPECT Stress Test SPECT Result Stress Test SPECT Ischemia Risk/Extent Yes Positive Intermediate Stress Test CMR No Cardiac CTA Coronary Calcium Score No No History: Other Current Smoker Method Packs a Day Years Used Pack Years Yes Cigarettes 1 25 25 Labs Hgb (g/dl) Hct (%) WBC (l/cumm) Platelets (thousands) 11.60-17.00 35.00-51.00 4.00-11.00 150.00-450.00 13.4 46.2 13.4 206 Glucose (mg/dl) BUN (mg/dl) Creatinine (mg/dl) BUN:Creatinine (1:x) 74.00-106.00 7.00-18.00 0.50-1.30 10.00-20.00 104 12 0.9 13.3 Na (meq/l) K (meq/l) 136.00-145.00 3.50-5.10 138 4.5 INR (PTT:PT) 0.90-1.10 1 Troponin I (ng/ml) CPK-MB (ng/ML) 0.02-0.05 0.50-3.60 0.08 Not Drawn Medication Medication Total Dose (Bolus/Oral) Medication Total Dosage/Unit 1% XYLOCAINE 20 mL AGGRASTAT BOLUS 50 mL EFFIENT 60 mg HEPARIN 7000 units NTG (IC) 200 mcg Medications (Bolus/Oral) Medication Time Given Dosage/Unit Administered By Reason 1% XYLOCAINE 05/03/2017 1:25:28 PM 20 mL Harmeet Wilson 20 mL 1% XYLOCAINE given in lab by Harmeet Wilson in Right Groin via Subcutaneous. Ordered by Harmeet Taylor. HEPARIN 05/03/2017 1:42:05 PM 7000 units Terese Fernandes 7000 units HEPARIN given in lab by Terese Fernandes, GAMA in Left Antecubital via Peripheral IV. Ordered by Harmeet Wilson. AGGRASTAT BOLUS 05/03/2017 1:47:08 PM 50 mL Terese Fernandes 50 mL AGGRASTAT BOLUS given in lab by Terese Fernandes RN via Peripheral IV. Ordered by Roque Wilson. NTG (IC) 05/03/2017 1:48:34 PM 200 mcg Harmeet Wilson 200 mcg NTG (IC) given in lab by Harmeet Wilson via Intra-coronary. Ordered by Harmeet Wilson. EFFIENT 05/03/2017 2:00:08 PM 60 mg Terese Fernandes 60 mg EFFIENT given in lab by Terese Fernandes RN via Oral. Ordered by Harmeet Wilson. Medication (Drip) Medication Time Given Dosage/Unit Concentration/Unit Diluent (ml) Solution AGGRASTAT DRIP 05/03/2017 1:50:16 PM 0.148 mcg/kg/min 12.5 mg 250 NaCl .9 0.148 mcg/kg/min AGGRASTAT DRIP given in lab by Harmeet Wilson via Peripheral IV. Pump/Drip Flow = 18 ml/hr using NaCl .9 with a concentration of 12.5 mg in 250 ml. Ordered by Harmeet Wilson. IV Solutions 05/03/2017 1:14:28 PM 0 mL (IV) 500 NaCl .9 Patient arrived on IV Solutions given by Terese Fernandes RN in Left Antecubital via Peripheral IV. P ump/Drip Flow = 20 ml/hr using NaCl .9. Ordered by Harmeet Wilson. Initial Case Assessment Cardiovascular HR Rhythm NIBP Chest Pain 70 sr 168/113 0 Edema Present Skin color Skin None Normal Warm Dry Circulatory - Right Pulses Dorsalis Pedis Femoral 2 2 Scale (0,1,2,3,4,d) Circulatory - Left Pulses Dorsalis Pedis Femoral 2 2 Scale (0,1,2,3,4,d) Neurological State Oriented to time-place- Alert Moves all extremities person Respiration - General Respiration Rate SpO2 (%) O2 (lpm) (B/min) 18 98 0 Chronological Log Time Study Chronological Log 13:05:11 Patient arrived via Bed. 13:05:13 Patient Name, D.O.B, / Armband Verified By R.N. 13:05:14 Consent signed by the physician and the patient and verified by the Physician staff. 13:05:15 Pre-op and post- op instructions given; patient acknowledges understanding of instructions. Vitals capture started with the following parameters, Patient=Adult, Interval=5 min, Initial Pr lvfodh=570 mmHg, 13:10:00 Deflation Rate=5 mmHg, Cuff placed on Right Arm 13:11:34 Reference ECG taken 13:11:46 Verbal Stimulation=2 Physical Stimulation=2 Airway=2 Respiration=2 TOTAL=8. (0=absent, 1=li mited, 2=present) 13:11:55 Presedation assessment performed by Physician RN. 13:11:57 Patient has been NPO for More than 6Hrs. 13:11:59 Skin Breakdown-none present per patient 13:12:13 A # 20 IV was noted in the Antecubital (left). Grade = 0 Vitals capture started with the following parameters, Patient=Adult, Interval=5 min, Initial Pr nzktdi=508 mmHg, 13:14:20 Deflation Rate=5 mmHg, Cuff placed on Right Arm Patient arrived on IV Solutions given by Terese Fernandes, GAMA in Left Antecubital via Peripheral IV. Pump/Drip Flow = 20 13:14:28 ml/hr using NaCl .9. Ordered by Harmeet Wilson. 13:14:50 History and physical on the chart or being dictated. Assessment: Initial Case, HR=70 BPM, Rhythm=sr, IROY=091/113 mmhg, Chest Pain=0, Edema=None, Co shirley=Normal, Skin = Warm, Dry Right Pulses: Wilver Ped=2, Femoral=2 13:14:55 Left Pulses: Wilver Ped=2, Femoral=2 Neurological: State=Alert, Ox3, FIERRO Respiration: Resp=18 B/min, SpO2=98 %, O2=0 lpm 13:15:27 Right groin prepped with 2% chlorhexidine, and draped after a 3 min. waiting time. 13:15:41 HR=76 bpm, ZIYC=711/113 mmhg, SpO2=96.0 %, Resp=19 B/min, Boudreaux=2 13:20:03 HR=61 bpm, IXHL=271/92 mmhg, SpO2=97.0 %, Resp=18 B/min, Boudreaux=2 13:23:53 Pressure channel 1 zeroed. 13:24:49 Right groin prepped with 2% chlorhexidine, and draped after a 3 min. waiting time. Time Out. Correct patient, correct procedure, correct physician, power injector not loaded with contrast with surgical 13:24:55 team present. Time Out Concurred by MD and individual staff in procedure. Not loaded at this ti me. 13:25:14 Presedation re-assessment performed by Physician RN. 13:25:15 Case Start 13:25:22 Verbal Stimulation=2 Physical Stimulation=2 Airway=2 Respiration=2 TOTAL=8. (0=absent, 1=li mited, 2=present) 20 mL 1% XYLOCAINE given in lab by Harmeet Wilson in Right Groin via Subcutaneous. Ordered by Katie, 13:25:28 Harmeet. 13:25:30 HR=59 bpm, KDOJ=942/85 mmhg, SpO2=99.0 %, Resp=14 B/min, Boudreaux=2 13:27:14 Access site was Right Femoral Vein. A SHEATH, FR7.5 PRELUDE 11CM FR 7.5 11CM was advanced into the Fem Vein (right) using the Percu taneous 13::49 technique. 13:29:04 Access site was Right Femoral Artery. 13:29:36 A SHEATH, FR4 TERUMO (10CM) FR 4 was advanced into the Fem Art (right) using the Percutaneo us technique. 13:30:03 HR=72 bpm, PVIG=607/70 mmhg, SpO2=98.0 %, Resp=15 B/min, Boudreaux=2 13:31:07 A SWAN NEIDA CATHETER FR 7 was inserted via Fem Vein (right) Recorded Pressure: PCW, HR=62, Condition=Condition 1 13:33:01 (Pulmonary Capillary Wedge) PCW 22/14 Recorded Pressure: MPA, HR=61, Condition=Condition 1 13:33:14 (Main Pulmonary Artery) MPA 28/9/16 Recorded Pressure: RV, HR=66, Condition=Condition 1 13:34:34 (Right Ventricle) RV 31/4/10 Recorded Pressure: RA, HR=61, Condition=Condition 1 13:34:49 (Right Atrium) RA 13:35:00 HR=60 bpm, MADF=032/91 mmhg, SpO2=96.0 %, Resp=12 B/min, Boudreaux=2 13:35:29 Lenora Neida Catheter Removed A JR 4.0 INFINITI CATHETER FR 4 was advanced over a wire. OMNIPAQUE, 350 MG, 150ML 150ML was us ed for 13:36:06 injections. Recorded Pressure: LV, HR=72, Condition=Condition 1 13:36:30 (Left Ventricle) LV 137/6/26 13:36:48 The LV was manually injected with 10 cc's and visualized. OMNIPAQUE, 350 MG, 150ML 150ML us ed. Recorded Pressure: LV, Ao, HR=66, Condition=Condition 1 13:36:49 (Left Ventricle) LV 139/5/31, (Aorta) Ao 138/82/107 13:37:06 The RCA was injected and visualized at various angles. OMNIPAQUE, 350 MG, 150ML 150ML used . 13:37:49 Catheter was removed A JL 4.0 INFINITI CATHETER FR 4 was advanced over a wire. OMNIPAQUE, 350 MG, 150ML 150ML was us ed for 13:37:51 injections. 13:38:18 The LCA was injected and visualized at various angles. OMNIPAQUE, 350 MG, 150ML 150ML used . Recorded Pressure: Ao, HR=63, Condition=Condition 1 13:39:27 (Aorta) Ao 147/85/110 13:39:51 Catheter was removed 13:39:55 HR=67 bpm, INSU=640/97 mmhg, SpO2=94.0 %, Resp=13 B/min, Boudreaux=2 13:40:08 Saturation: Site=FA (Femoral Artery) , O2=99.6 %, Hgb=13.4 gm/dl, Condition=Condition 1. Us ed in calculation. A SHEATH, FR6.5 PRELUDE 11CM FR 6.5 was exchanged in the Fem Art (right). This was necessary in order to 13:40:51 accomodate a larger catheter. A XB 3.5 GUIDE CATHETER FR 6 was advanced over a wire. OMNIPAQUE, 350 MG, 150ML 150ML was used for 13:41:18 injections. 7000 units HEPARIN given in lab by Terese Fernandes, RN in Left Antecubital via Peripheral IV. O rdered by Katie 13:42:05 Harmeet. 13:42:28 A WIRE, ASAHI PROWATER 180CM 180CM was inserted via Fem Art (right). 13:44:50 Interventional wire has crossed the lesion An STENT, 3.0 9 INTEGRITY 3.0 9 Bare Metal Stent was inserted through a XB 3.5 GUIDE CATHETER F R 6 over a 13:45:00 WIRE, ASAHI PROWATER 180CM 180CM. 13:45:02 HR=62 bpm, LCCL=361/85 mmhg, SpO2=97.0 %, Resp=16 B/min, Boudreaux=2 An STENT, 3.0 9 INTEGRITY 3.0 9 Bare Metal Stent was inserted through a XB 3.5 GUIDE CATHETER F R 6 over a 13:46:00 WIRE, ASAHI PROWATER 180CM 180CM. A STENT, 3.0 9 INTEGRITY 3.0 9 was deployed using a 30 TAHIR INDEFLATOR at 10 atmospheres for 15 seconds in the 13:46:22 LAD Prox. 13:47:05 Delivery device removed 13:47:08 50 mL AGGRASTAT BOLUS given in lab by Terese Fernandes, GAMA via Peripheral IV. Ordered by Harmeet Long. 13:47:42 Wire removed 13:48:34 200 mcg NTG (IC) given in lab by Harmeet Wilson via Intra-coronary. Ordered by Harmeet Wilson. 13:49:59 HR=64 bpm, DIAR=932/90 mmhg, SpO2=96.0 %, Resp=8 B/min, Boudreaux=2 0.148 mcg/kg/min AGGRASTAT DRIP given in lab by Harmeet Wilson via Peripheral IV. Pump/Drip F low = 18 ml/hr 13:50:16 using NaCl .9 with a concentration of 12.5 mg in 250 ml. Ordered by Harmeet Wilson. 13:50:42 Catheter was removed 13:51:06 Case End 13:52:52 Saturation: Site=PA (Pulmonary Artery) , O2=76.4 %, Hgb=13.4 gm/dl, Condition=Condition 1. Used in calculation. 13:53:12 Saturation: Site=RA (Right Atrium) , O2=71.1 %, Hgb=13.4 gm/dl, Condition=Condition 1. Used in calculation. 13:55:35 HR=61 bpm, JCXE=058/88 mmhg, SpO2=98.0 %, Resp=10 B/min, Boudreaux=2 13:57:27 Sterile dressing applied to site 13:57:30 No case complications noted. 13:57:32 Cine recording checked. 13:57:39 Bedside Report will be given. 13:57:41 Contrast Scanned 13:57:48 Patient moved to stretcher 14:00:01 HR=62 bpm, PWUH=652/90 mmhg, SpO2=97.0 %, Resp=13 B/min, Boudreaux=2 14:00:06 Vitals capture stopped. 14:00:08 60 mg EFFIENT given in lab by Terese Fernandes, GAMA via Oral. Ordered by Harmeet Wilson. 14:04:50 Activated Clotting Time Drawn 14:09:49 ACT (Normal Range 90-180) = 241 End Study - Contrast Media Used In Study Contrast Total Opened (mL) Total Used (mL) Total Wasted (mL) Omnipaque 60 60 0 End Study - Maximum Contrast Load Max Contrast Load (mL) 564.4 End Study - Radiation Exposure Fluoro Time (minutes) 4.0 End Study - Patient Disposition Complications Transferred To Interventional Outcome No Telemetry Bed successful
--- NOTE | 2017-05-03 14:10 | CATHPROC ---
Niche HIS Report Study Information Study Number Admission Scheduled Start Study Start [id number] May 02 2017 10:13AM 05/03/2017 May 03 2017 1:05PM [place] Service Cardiac Catheterization Admit Source Facility Department Emergency department [facility] - Behavioral Sciences Instructor Physician and Clinical Staff Initial Harmeet Mccloud Data Entry Manager Terese Fernandes,RN Recorder Feliciano Bonds,RT(R) Scrub Roddy Murdock,RT(R) Procedures Performed Procedure Location (Site) Vessel Name Coronary Angiograms LCA Left Coronary Coronary Angiograms RCA Right Coronary LV Gram-hand inj. LV LV Ventricle Stent LAD Prox Left Coronary Wire insertion Fem Art (right) Femoral Art Equipment Time Sound Technician Supervisor Description Size Mfg Part Number Used/Scraped [id number] 13:41 [employer] WIRE, [employer] PROWATER 180CM 180CM Used *[id number] 13:23 DAMON INFANTE SWAN NEIDA CATHETER FR 7 Used *[id number] TRANSDUCER, TRUWAVE [id number] 13:16 DAMON INFANTE * Used W/STOCKCOCK *[id number] 538-420 *[id number] 538-421 *[id number] *[id number] 13:16 MEDLINE IND[employer] PACK, CCL CUSTOM * Used *[id number] 13:16 REPP PACER PEN, SKIN DUAL W/ RULER * Used *[id number] 13:45 MEDTRONIC STENT, 3.0 9 INTEGRITY 3.0 9 Used *[id number] 13:46 DefenCall MEDICAL 30 TAHIR INDEFLATOR Used *[id number] 13:41 [employer]en[employer] MEDICAL SHEATH, FR6.5 PRELUDE 11CM FR 6.5 038ACT Used *[id number] 13:22 DefenCall MEDICAL SHEATH, FR7.5 PRELUDE 11CM FR 7.5 11CM Used [id number] 13:16 [employer]enCall MEDICAL WIRE, 3MMJ .035 180CM 180CM Used *[id number] 13:16 NAMIC MANIFOLD, 4 PORT * Used *[id number] 13:16 NYCOMED OMNIPAQUE, 350 MG, 150ML 150ML [id number] Used [id number] 13:16 CONDE MEDICAL BLANKET,WARM AIR CCL * Used *[id number] 13:16 TERUMO MEDICAL SHEATH, FR4 TERUMO (10CM) FR 4 Used *[id number] Equipment Model, Serial, Lot Number and Expiration Data Description Model Number Serial Number Lot Number Expiration Date SHEATH, FR6.5 PRELUDE 11CM [id number] 12-26-2019 History: Allergies Allergy Reaction No Known Allergies History: Risk Factors Family History of Hypertension Dyslipidemia Previous PA Previous Heart Failure Premature CAD Yes Yes Yes No No Prior Valve Prior PCI Prior CABG Surgery No No No Cerebrovascular Peripheral Artery Chronic Lung On Dialysis Diabetes Disease Disease Disease No No No No No History: Stress Tests Stress or Imaging Studies Performed Yes Standard Exercise Stress Test No Stress Echo No Stress Test SPECT Stress Test SPECT Result Stress Test SPECT Ischemia Risk/Extent Yes Positive Intermediate Stress Test CMR No Cardiac CTA Coronary Calcium Score No No History: Other Current Smoker Method Packs a Day Years Used Pack Years Yes Cigarettes 1 25 25 Labs Hgb (g/dl) Hct (%) WBC (l/cumm) Platelets (thousands) 11.60-17.00 35.00-51.00 4.00-11.00 150.00-450.00 13.4 46.2 13.4 206 Glucose (mg/dl) BUN (mg/dl) Creatinine (mg/dl) BUN:Creatinine (1:x) 74.00-106.00 7.00-18.00 0.50-1.30 10.00-20.00 104 12 0.9 13.3 Na (meq/l) K (meq/l) 136.00-145.00 3.50-5.10 138 4.5 INR (PTT:PT) 0.90-1.10 1 Troponin I (ng/ml) CPK-MB (ng/ML) 0.02-0.05 0.50-3.60 0.08 Not Drawn Medication Medication Total Dose (Bolus/Oral) Medication Total Dosage/Unit 1% XYLOCAINE 20 mL AGGRASTAT BOLUS 50 mL EFFIENT 60 mg HEPARIN 7000 units NTG (IC) 200 mcg Medications (Bolus/Oral) Medication Time Given Dosage/Unit Administered By Reason 1% XYLOCAINE 05/03/2017 1:25:28 PM 20 mL Harmeet Wilson 20 mL 1% XYLOCAINE given in lab by Harmeet Wilson in Right Groin via Subcutaneous. Ordered by Harmeet Taylor. HEPARIN 05/03/2017 1:42:05 PM 7000 units Terese Fernandes 7000 units HEPARIN given in lab by Terese Fernandes, GAMA in Left Antecubital via Peripheral IV. Ordered by Harmeet Wilson. AGGRASTAT BOLUS 05/03/2017 1:47:08 PM 50 mL Tersee Fernandes 50 mL AGGRASTAT BOLUS given in lab by Terese Fernandes RN via Peripheral IV. Ordered by Roque Wilson. NTG (IC) 05/03/2017 1:48:34 PM 200 mcg Harmeet Wilson 200 mcg NTG (IC) given in lab by Harmeet Wilson via Intra-coronary. Ordered by Harmeet Wilson. EFFIENT 05/03/2017 2:00:08 PM 60 mg Terese Fernandes 60 mg EFFIENT given in lab by Terese Fernandes RN via Oral. Ordered by Harmeet Wilson. Medication (Drip) Medication Time Given Dosage/Unit Concentration/Unit Diluent (ml) Solution AGGRASTAT DRIP 05/03/2017 1:50:16 PM 0.148 mcg/kg/min 12.5 mg 250 NaCl .9 0.148 mcg/kg/min AGGRASTAT DRIP given in lab by Harmeet Wilson via Peripheral IV. Pump/Drip Flow = 18 ml/hr using NaCl .9 with a concentration of 12.5 mg in 250 ml. Ordered by Harmeet Wilson. IV Solutions 05/03/2017 1:14:28 PM 0 mL (IV) 500 NaCl .9 Patient arrived on IV Solutions given by Terese Fernandes RN in Left Antecubital via Peripheral IV. P ump/Drip Flow = 20 ml/hr using NaCl .9. Ordered by Harmeet Wilson. Initial Case Assessment Cardiovascular HR Rhythm NIBP Chest Pain 70 sr 168/113 0 Edema Present Skin color Skin None Normal Warm Dry Circulatory - Right Pulses Dorsalis Pedis Femoral 2 2 Scale (0,1,2,3,4,d) Circulatory - Left Pulses Dorsalis Pedis Femoral 2 2 Scale (0,1,2,3,4,d) Neurological State Oriented to time-place- Alert Moves all extremities person Respiration - General Respiration Rate SpO2 (%) O2 (lpm) (B/min) 18 98 0 Chronological Log Time Study Chronological Log 13:05:11 Patient arrived via Bed. 13:05:13 Patient Name, D.O.B, / Armband Verified By R.N. 13:05:14 Consent signed by the physician and the patient and verified by the Behavioral Sciences Instructor staff. 13:05:15 Pre-op and post- op instructions given; patient acknowledges understanding of instructions. Vitals capture started with the following parameters, Patient=Adult, Interval=5 min, Initial Pr ylscll=844 mmHg, 13:10:00 Deflation Rate=5 mmHg, Cuff placed on Right Arm 13:11:34 Reference ECG taken 13:11:46 Verbal Stimulation=2 Physical Stimulation=2 Airway=2 Respiration=2 TOTAL=8. (0=absent, 1=li mited, 2=present) 13:11:55 Presedation assessment performed by Behavioral Sciences Instructor RN. 13:11:57 Patient has been NPO for More than 6Hrs. 13:11:59 Skin Breakdown-none present per patient 13:12:13 A # 20 IV was noted in the Antecubital (left). Grade = 0 Vitals capture started with the following parameters, Patient=Adult, Interval=5 min, Initial Pr lcayby=278 mmHg, 13:14:20 Deflation Rate=5 mmHg, Cuff placed on Right Arm Patient arrived on IV Solutions given by Terese Fernandes, GAMA in Left Antecubital via Peripheral IV. Pump/Drip Flow = 20 13:14:28 ml/hr using NaCl .9. Ordered by Harmeet Wilson. 13:14:50 History and physical on the chart or being dictated. Assessment: Initial Case, HR=70 BPM, Rhythm=sr, XFBX=279/113 mmhg, Chest Pain=0, Edema=None, Co shirley=Normal, Skin = Warm, Dry Right Pulses: Wilver Ped=2, Femoral=2 13:14:55 Left Pulses: Wilver Ped=2, Femoral=2 Neurological: State=Alert, Ox3, FIERRO Respiration: Resp=18 B/min, SpO2=98 %, O2=0 lpm 13:15:27 Right groin prepped with 2% chlorhexidine, and draped after a 3 min. waiting time. 13:15:41 HR=76 bpm, CIBT=080/113 mmhg, SpO2=96.0 %, Resp=19 B/min, Boudreaux=2 13:20:03 HR=61 bpm, WNII=865/92 mmhg, SpO2=97.0 %, Resp=18 B/min, Boudreaux=2 13:23:53 Pressure channel 1 zeroed. 13:24:49 Right groin prepped with 2% chlorhexidine, and draped after a 3 min. waiting time. Time Out. Correct patient, correct procedure, correct physician, power injector not loaded with contrast with surgical 13:24:55 team present. Time Out Concurred by MD and individual staff in procedure. Not loaded at this ti me. 13:25:14 Presedation re-assessment performed by Behavioral Sciences Instructor RN. 13:25:15 Case Start 13:25:22 Verbal Stimulation=2 Physical Stimulation=2 Airway=2 Respiration=2 TOTAL=8. (0=absent, 1=li mited, 2=present) 20 mL 1% XYLOCAINE given in lab by Harmeet Wilson in Right Groin via Subcutaneous. Ordered by Katie, 13:25:28 Harmeet. 13:25:30 HR=59 bpm, WRFK=343/85 mmhg, SpO2=99.0 %, Resp=14 B/min, Boudreaux=2 13:27:14 Access site was Right Femoral Vein. A SHEATH, FR7.5 PRELUDE 11CM FR 7.5 11CM was advanced into the Fem Vein (right) using the Percu taneous 13::49 technique. 13:29:04 Access site was Right Femoral Artery. 13:29:36 A SHEATH, FR4 TERUMO (10CM) FR 4 was advanced into the Fem Art (right) using the Percutaneo us technique. 13:30:03 HR=72 bpm, EGRN=997/70 mmhg, SpO2=98.0 %, Resp=15 B/min, Boudreaux=2 13:31:07 A SWAN NEIDA CATHETER FR 7 was inserted via Fem Vein (right) Recorded Pressure: PCW, HR=62, Condition=Condition 1 13:33:01 (Pulmonary Capillary Wedge) PCW 22/14 Recorded Pressure: MPA, HR=61, Condition=Condition 1 13:33:14 (Main Pulmonary Artery) MPA 28/9/16 Recorded Pressure: RV, HR=66, Condition=Condition 1 13:34:34 (Right Ventricle) RV 31/4/10 Recorded Pressure: RA, HR=61, Condition=Condition 1 13:34:49 (Right Atrium) RA 13:35:00 HR=60 bpm, UMTI=312/91 mmhg, SpO2=96.0 %, Resp=12 B/min, Boudreaux=2 13:35:29 [place] Neida Catheter Removed A JR 4.0 INFINITI CATHETER FR 4 was advanced over a wire. OMNIPAQUE, 350 MG, 150ML 150ML was us ed for 13:36:06 injections. Recorded Pressure: LV, HR=72, Condition=Condition 1 13:36:30 (Left Ventricle) LV 137/6/26 13:36:48 The LV was manually injected with 10 cc's and visualized. OMNIPAQUE, 350 MG, 150ML 150ML us ed. Recorded Pressure: LV, Ao, HR=66, Condition=Condition 1 13:36:49 (Left Ventricle) LV 139/5/31, (Aorta) Ao 138/82/107 13:37:06 The RCA was injected and visualized at various angles. OMNIPAQUE, 350 MG, 150ML 150ML used . 13:37:49 Catheter was removed A JL 4.0 INFINITI CATHETER FR 4 was advanced over a wire. OMNIPAQUE, 350 MG, 150ML 150ML was us ed for 13:37:51 injections. 13:38:18 The LCA was injected and visualized at various angles. OMNIPAQUE, 350 MG, 150ML 150ML used . Recorded Pressure: Ao, HR=63, Condition=Condition 1 13:39:27 (Aorta) Ao 147/85/110 13:39:51 Catheter was removed 13:39:55 HR=67 bpm, BMJT=527/97 mmhg, SpO2=94.0 %, Resp=13 B/min, Boudreaux=2 13:40:08 Saturation: Site=FA (Femoral Artery) , O2=99.6 %, Hgb=13.4 gm/dl, Condition=Condition 1. Us ed in calculation. A SHEATH, FR6.5 PRELUDE 11CM FR 6.5 was exchanged in the Fem Art (right). This was necessary in order to 13:40:51 accomodate a larger catheter. A XB 3.5 GUIDE CATHETER FR 6 was advanced over a wire. OMNIPAQUE, 350 MG, 150ML 150ML was used for 13:41:18 injections. 7000 units HEPARIN given in lab by Terese Fernandes, RN in Left Antecubital via Peripheral IV. O rdered by Katie 13:42:05 Harmeet. 13:42:28 A WIRE, ASAHI PROWATER 180CM 180CM was inserted via Fem Art (right). 13:44:50 Interventional wire has crossed the lesion An STENT, 3.0 9 INTEGRITY 3.0 9 Bare Metal Stent was inserted through a XB 3.5 GUIDE CATHETER F R 6 over a 13:45:00 WIRE, ASAHI PROWATER 180CM 180CM. 13:45:02 HR=62 bpm, ZQMC=085/85 mmhg, SpO2=97.0 %, Resp=16 B/min, Boudreaux=2 An STENT, 3.0 9 INTEGRITY 3.0 9 Bare Metal Stent was inserted through a XB 3.5 GUIDE CATHETER F R 6 over a 13:46:00 WIRE, ASAHI PROWATER 180CM 180CM. A STENT, 3.0 9 INTEGRITY 3.0 9 was deployed using a 30 TAHIR INDEFLATOR at 10 atmospheres for 15 seconds in the 13:46:22 LAD Prox. 13:47:05 Delivery device removed 13:47:08 50 mL AGGRASTAT BOLUS given in lab by Terese Feranndes, GAMA via Peripheral IV. Ordered by Harmeet Long. 13:47:42 Wire removed 13:48:34 200 mcg NTG (IC) given in lab by Harmeet Wilson via Intra-coronary. Ordered by Harmeet Wilson. 13:49:59 HR=64 bpm, NKZJ=454/90 mmhg, SpO2=96.0 %, Resp=8 B/min, Boudreaux=2 0.148 mcg/kg/min AGGRASTAT DRIP given in lab by Harmeet Wilson via Peripheral IV. Pump/Drip F low = 18 ml/hr 13:50:16 using NaCl .9 with a concentration of 12.5 mg in 250 ml. Ordered by Harmeet Wilson. 13:50:42 Catheter was removed 13:51:06 Case End 13:52:52 Saturation: Site=PA (Pulmonary Artery) , O2=76.4 %, Hgb=13.4 gm/dl, Condition=Condition 1. Used in calculation. 13:53:12 Saturation: Site=RA (Right Atrium) , O2=71.1 %, Hgb=13.4 gm/dl, Condition=Condition 1. Used in calculation. 13:55:35 HR=61 bpm, UMFY=568/88 mmhg, SpO2=98.0 %, Resp=10 B/min, Boudreaux=2 13:57:27 Sterile dressing applied to site 13:57:30 No case complications noted. 13:57:32 Cine recording checked. 13:57:39 Bedside Report will be given. 13:57:41 Contrast Scanned 13:57:48 Patient moved to stretcher 14:00:01 HR=62 bpm, JICO=279/90 mmhg, SpO2=97.0 %, Resp=13 B/min, Boudreaux=2 14:00:06 Vitals capture stopped. 14:00:08 60 mg EFFIENT given in lab by Terese Fernandes, GAMA via Oral. Ordered by Harmeet Wilson. 14:04:50 Activated Clotting Time Drawn 14:09:49 ACT (Normal Range 90-180) = 241 End Study - Contrast Media Used In Study Contrast Total Opened (mL) Total Used (mL) Total Wasted (mL) Omnipaque 60 60 0 End Study - Maximum Contrast Load Max Contrast Load (mL) 564.4 End Study - Radiation Exposure Fluoro Time (minutes) 4.0 End Study - Patient Disposition Complications Transferred To Interventional Outcome No Telemetry Bed successful
--- NOTE | 2017-05-03 14:10 | CATHPROC ---
[employer] HIS Report Study Information Study Number Admission Scheduled Start Study Start [id number] May 02 2017 10:13AM 05/03/2017 May 03 2017 1:05PM [facility] Cardiac Catheterization Admit Source Facility Department Emergency department [facility] - Purification Operator Physician and Clinical Staff Initial Harmeet Mccloud Engraver Ornamental Design Terese Fernandes,RN Recorder Feliciano Bonds,RT(R) Scrub Roddy Murdock,RT(R) Procedures Performed Procedure Location (Site) Vessel Name Coronary Angiograms LCA Left Coronary Coronary Angiograms RCA Right Coronary LV Gram-hand inj. LV LV Ventricle Stent LAD Prox Left Coronary Wire insertion Fem Art (right) Femoral Art Equipment Time Calculus Teacher Description Size Mfg Part Number Used/Scraped [id number] 13:41 [employer] WIRE, ASAEmergentDetection PROWATER 180CM 180CM Used *[id number] 13:23 DAMON INFANTE SWAN NEIDA CATHETER FR 7 Used *[id number] TRANSDUCER, TRUWAVE [id number] 13:16 DAMON INFANTE * Used W/STOCKCOCK *[id number] 538-420 *[id number] 538-421 *[id number] *[id number] 13:16 MEDLINE IND[employer]RIES PACK, CCL CUSTOM * Used *[id number] 13:16 [employer] PACER PEN, SKIN DUAL W/ RULER * Used *[id number] 13:45 MEDTRONIC STENT, 3.0 9 INTEGRITY 3.0 9 Used *[id number] 13:46 [employer] MEDICAL 30 TAHIR INDEFLATOR Used *[id number] 13:41 [employer] MEDICAL SHEATH, FR6.5 PRELUDE 11CM FR 6.5 038ACT Used *[id number] 13:22 [employer] MEDICAL SHEATH, FR7.5 PRELUDE 11CM FR 7.5 11CM Used [id number] 13:16 [employer] MEDICAL WIRE, 3MMJ .035 180CM 180CM Used *[id number] 13:16 NAMIC MANIFOLD, 4 PORT * Used *[id number] 13:16 NYCOMED OMNIPAQUE, 350 MG, 150ML 150ML [id number] Used [id number] 13:16 CONDE MEDICAL BLANKET,WARM AIR CCL * Used *[id number] 13:16 TERUMO MEDICAL SHEATH, FR4 TERUMO (10CM) FR 4 Used *[id number] Equipment Model, Serial, Lot Number and Expiration Data Description Model Number Serial Number Lot Number Expiration Date SHEATH, FR6.5 PRELUDE 11CM [id number] 12-26-2019 History: Allergies Allergy Reaction No Known Allergies History: Risk Factors Family History of Hypertension Dyslipidemia Previous [place] Previous Heart Failure Premature CAD Yes Yes Yes No No Prior Valve Prior PCI Prior CABG Surgery No No No Cerebrovascular Peripheral Artery Chronic Lung On Dialysis Diabetes Disease Disease Disease No No No No No History: Stress Tests Stress or Imaging Studies Performed Yes Standard Exercise Stress Test No Stress Echo No Stress Test SPECT Stress Test SPECT Result Stress Test SPECT Ischemia Risk/Extent Yes Positive Intermediate Stress Test CMR No Cardiac CTA Coronary Calcium Score No No History: Other Current Smoker Method Packs a Day Years Used Pack Years Yes Cigarettes 1 25 25 Labs Hgb (g/dl) Hct (%) WBC (l/cumm) Platelets (thousands) 11.60-17.00 35.00-51.00 4.00-11.00 150.00-450.00 13.4 46.2 13.4 206 Glucose (mg/dl) BUN (mg/dl) Creatinine (mg/dl) BUN:Creatinine (1:x) 74.00-106.00 7.00-18.00 0.50-1.30 10.00-20.00 104 12 0.9 13.3 Na (meq/l) K (meq/l) 136.00-145.00 3.50-5.10 138 4.5 INR (PTT:PT) 0.90-1.10 1 Troponin I (ng/ml) CPK-MB (ng/ML) 0.02-0.05 0.50-3.60 0.08 Not Drawn Medication Medication Total Dose (Bolus/Oral) Medication Total Dosage/Unit 1% XYLOCAINE 20 mL AGGRASTAT BOLUS 50 mL EFFIENT 60 mg HEPARIN 7000 units NTG (IC) 200 mcg Medications (Bolus/Oral) Medication Time Given Dosage/Unit Administered By Reason 1% XYLOCAINE 05/03/2017 1:25:28 PM 20 mL Harmeet Wilson 20 mL 1% XYLOCAINE given in lab by Harmeet Wilson in Right Groin via Subcutaneous. Ordered by Harmeet Taylor. HEPARIN 05/03/2017 1:42:05 PM 7000 units Terese Fernandes 7000 units HEPARIN given in lab by Terese Fernandes, GAMA in Left Antecubital via Peripheral IV. Ordered by Harmeet Wilson. AGGRASTAT BOLUS 05/03/2017 1:47:08 PM 50 mL Terese Fernandes 50 mL AGGRASTAT BOLUS given in lab by Terese Fernandes RN via Peripheral IV. Ordered by Roque Wilson. NTG (IC) 05/03/2017 1:48:34 PM 200 mcg Harmeet Wilson 200 mcg NTG (IC) given in lab by Harmeet Wilson via Intra-coronary. Ordered by Harmeet Wilson. EFFIENT 05/03/2017 2:00:08 PM 60 mg Terese Fernandes 60 mg EFFIENT given in lab by Terese Fernandes RN via Oral. Ordered by Harmeet Wilson. Medication (Drip) Medication Time Given Dosage/Unit Concentration/Unit Diluent (ml) Solution AGGRASTAT DRIP 05/03/2017 1:50:16 PM 0.148 mcg/kg/min 12.5 mg 250 NaCl .9 0.148 mcg/kg/min AGGRASTAT DRIP given in lab by Harmeet Wilson via Peripheral IV. Pump/Drip Flow = 18 ml/hr using NaCl .9 with a concentration of 12.5 mg in 250 ml. Ordered by Harmeet Wilson. IV Solutions 05/03/2017 1:14:28 PM 0 mL (IV) 500 NaCl .9 Patient arrived on IV Solutions given by Terese Fernandes RN in Left Antecubital via Peripheral IV. P ump/Drip Flow = 20 ml/hr using NaCl .9. Ordered by Harmeet Wilson. Initial Case Assessment Cardiovascular HR Rhythm NIBP Chest Pain 70 sr 168/113 0 Edema Present Skin color Skin None Normal Warm Dry Circulatory - Right Pulses Dorsalis Pedis Femoral 2 2 Scale (0,1,2,3,4,d) Circulatory - Left Pulses Dorsalis Pedis Femoral 2 2 Scale (0,1,2,3,4,d) Neurological State Oriented to time-place- Alert Moves all extremities person Respiration - General Respiration Rate SpO2 (%) O2 (lpm) (B/min) 18 98 0 Chronological Log Time Study Chronological Log 13:05:11 Patient arrived via Bed. 13:05:13 Patient Name, D.O.B, / Armband Verified By R.N. 13:05:14 Consent signed by the physician and the patient and verified by the Purification Operator staff. 13:05:15 Pre-op and post- op instructions given; patient acknowledges understanding of instructions. Vitals capture started with the following parameters, Patient=Adult, Interval=5 min, Initial Pr wwueub=448 mmHg, 13:10:00 Deflation Rate=5 mmHg, Cuff placed on Right Arm 13:11:34 Reference ECG taken 13:11:46 Verbal Stimulation=2 Physical Stimulation=2 Airway=2 Respiration=2 TOTAL=8. (0=absent, 1=li mited, 2=present) 13:11:55 Presedation assessment performed by Purification Operator RN. 13:11:57 Patient has been NPO for More than 6Hrs. 13:11:59 Skin Breakdown-none present per patient 13:12:13 A # 20 IV was noted in the Antecubital (left). Grade = 0 Vitals capture started with the following parameters, Patient=Adult, Interval=5 min, Initial Pr vcahbk=897 mmHg, 13:14:20 Deflation Rate=5 mmHg, Cuff placed on Right Arm Patient arrived on IV Solutions given by Terese Fernandes, GAMA in Left Antecubital via Peripheral IV. Pump/Drip Flow = 20 13:14:28 ml/hr using NaCl .9. Ordered by Harmeet Wilson. 13:14:50 History and physical on the chart or being dictated. Assessment: Initial Case, HR=70 BPM, Rhythm=sr, NIBW=542/113 mmhg, Chest Pain=0, Edema=None, Co shirley=Normal, Skin = Warm, Dry Right Pulses: Wilver Ped=2, Femoral=2 13:14:55 Left Pulses: Wilver Ped=2, Femoral=2 Neurological: State=Alert, Ox3, FIERRO Respiration: Resp=18 B/min, SpO2=98 %, O2=0 lpm 13:15:27 Right groin prepped with 2% chlorhexidine, and draped after a 3 min. waiting time. 13:15:41 HR=76 bpm, HOFP=317/113 mmhg, SpO2=96.0 %, Resp=19 B/min, Boudreaux=2 13:20:03 HR=61 bpm, ATXV=790/92 mmhg, SpO2=97.0 %, Resp=18 B/min, Boudreaux=2 13:23:53 Pressure channel 1 zeroed. 13:24:49 Right groin prepped with 2% chlorhexidine, and draped after a 3 min. waiting time. Time Out. Correct patient, correct procedure, correct physician, power injector not loaded with contrast with surgical 13:24:55 team present. Time Out Concurred by MD and individual staff in procedure. Not loaded at this ti me. 13:25:14 Presedation re-assessment performed by Purification Operator RN. 13:25:15 Case Start 13:25:22 Verbal Stimulation=2 Physical Stimulation=2 Airway=2 Respiration=2 TOTAL=8. (0=absent, 1=li mited, 2=present) 20 mL 1% XYLOCAINE given in lab by Harmeet Wilson in Right Groin via Subcutaneous. Ordered by Katie, 13:25:28 Harmeet. 13:25:30 HR=59 bpm, UOQF=684/85 mmhg, SpO2=99.0 %, Resp=14 B/min, Boudreaux=2 13:27:14 Access site was Right Femoral Vein. A SHEATH, FR7.5 PRELUDE 11CM FR 7.5 11CM was advanced into the Fem Vein (right) using the Percu taneous 13::49 technique. 13:29:04 Access site was Right Femoral Artery. 13:29:36 A SHEATH, FR4 TERUMO (10CM) FR 4 was advanced into the Fem Art (right) using the Percutaneo us technique. 13:30:03 HR=72 bpm, OXBF=614/70 mmhg, SpO2=98.0 %, Resp=15 B/min, Boudreaux=2 13:31:07 A SWAN NEIDA CATHETER FR 7 was inserted via Fem Vein (right) Recorded Pressure: PCW, HR=62, Condition=Condition 1 13:33:01 (Pulmonary Capillary Wedge) PCW 22/14 Recorded Pressure: MPA, HR=61, Condition=Condition 1 13:33:14 (Main Pulmonary Artery) MPA 28/9/16 Recorded Pressure: RV, HR=66, Condition=Condition 1 13:34:34 (Right Ventricle) RV 31/4/10 Recorded Pressure: RA, HR=61, Condition=Condition 1 13:34:49 (Right Atrium) RA 13:35:00 HR=60 bpm, ZMWH=233/91 mmhg, SpO2=96.0 %, Resp=12 B/min, Boudreaux=2 13:35:29 Fowler Neida Catheter Removed A JR 4.0 INFINITI CATHETER FR 4 was advanced over a wire. OMNIPAQUE, 350 MG, 150ML 150ML was us ed for 13:36:06 injections. Recorded Pressure: LV, HR=72, Condition=Condition 1 13:36:30 (Left Ventricle) LV 137/6/26 13:36:48 The LV was manually injected with 10 cc's and visualized. OMNIPAQUE, 350 MG, 150ML 150ML us ed. Recorded Pressure: LV, Ao, HR=66, Condition=Condition 1 13:36:49 (Left Ventricle) LV 139/5/31, (Aorta) Ao 138/82/107 13:37:06 The RCA was injected and visualized at various angles. OMNIPAQUE, 350 MG, 150ML 150ML used . 13:37:49 Catheter was removed A JL 4.0 INFINITI CATHETER FR 4 was advanced over a wire. OMNIPAQUE, 350 MG, 150ML 150ML was us ed for 13:37:51 injections. 13:38:18 The LCA was injected and visualized at various angles. OMNIPAQUE, 350 MG, 150ML 150ML used . Recorded Pressure: Ao, HR=63, Condition=Condition 1 13:39:27 (Aorta) Ao 147/85/110 13:39:51 Catheter was removed 13:39:55 HR=67 bpm, RUGR=869/97 mmhg, SpO2=94.0 %, Resp=13 B/min, Boudreaux=2 13:40:08 Saturation: Site=FA (Femoral Artery) , O2=99.6 %, Hgb=13.4 gm/dl, Condition=Condition 1. Us ed in calculation. A SHEATH, FR6.5 PRELUDE 11CM FR 6.5 was exchanged in the Fem Art (right). This was necessary in order to 13:40:51 accomodate a larger catheter. A XB 3.5 GUIDE CATHETER FR 6 was advanced over a wire. OMNIPAQUE, 350 MG, 150ML 150ML was used for 13:41:18 injections. 7000 units HEPARIN given in lab by Terese Fernandes, RN in Left Antecubital via Peripheral IV. O rdered by Katie 13:42:05 Harmeet. 13:42:28 A WIRE, ASAHI PROWATER 180CM 180CM was inserted via Fem Art (right). 13:44:50 Interventional wire has crossed the lesion An STENT, 3.0 9 INTEGRITY 3.0 9 Bare Metal Stent was inserted through a XB 3.5 GUIDE CATHETER F R 6 over a 13:45:00 WIRE, ASAHI PROWATER 180CM 180CM. 13:45:02 HR=62 bpm, OQBM=406/85 mmhg, SpO2=97.0 %, Resp=16 B/min, Boudreaux=2 An STENT, 3.0 9 INTEGRITY 3.0 9 Bare Metal Stent was inserted through a XB 3.5 GUIDE CATHETER F R 6 over a 13:46:00 WIRE, ASAHI PROWATER 180CM 180CM. A STENT, 3.0 9 INTEGRITY 3.0 9 was deployed using a 30 TAHIR INDEFLATOR at 10 atmospheres for 15 seconds in the 13:46:22 LAD Prox. 13:47:05 Delivery device removed 13:47:08 50 mL AGGRASTAT BOLUS given in lab by Terese Fernandes, GAMA via Peripheral IV. Ordered by Harmeet Long. 13:47:42 Wire removed 13:48:34 200 mcg NTG (IC) given in lab by Harmeet Wilson via Intra-coronary. Ordered by Harmeet Wilson. 13:49:59 HR=64 bpm, ELHW=158/90 mmhg, SpO2=96.0 %, Resp=8 B/min, Boudreaux=2 0.148 mcg/kg/min AGGRASTAT DRIP given in lab by Harmeet Wilson via Peripheral IV. Pump/Drip F low = 18 ml/hr 13:50:16 using NaCl .9 with a concentration of 12.5 mg in 250 ml. Ordered by Harmeet Wilson. 13:50:42 Catheter was removed 13:51:06 Case End 13:52:52 Saturation: Site=PA (Pulmonary Artery) , O2=76.4 %, Hgb=13.4 gm/dl, Condition=Condition 1. Used in calculation. 13:53:12 Saturation: Site=RA (Right Atrium) , O2=71.1 %, Hgb=13.4 gm/dl, Condition=Condition 1. Used in calculation. 13:55:35 HR=61 bpm, HLRF=489/88 mmhg, SpO2=98.0 %, Resp=10 B/min, Boudreaux=2 13:57:27 Sterile dressing applied to site 13:57:30 No case complications noted. 13:57:32 Cine recording checked. 13:57:39 Bedside Report will be given. 13:57:41 Contrast Scanned 13:57:48 Patient moved to stretcher 14:00:01 HR=62 bpm, BALQ=238/90 mmhg, SpO2=97.0 %, Resp=13 B/min, Boudreaux=2 14:00:06 Vitals capture stopped. 14:00:08 60 mg EFFIENT given in lab by Terese Fernandes, GAMA via Oral. Ordered by Harmeet Wilson. 14:04:50 Activated Clotting Time Drawn 14:09:49 ACT (Normal Range 90-180) = 241 End Study - Contrast Media Used In Study Contrast Total Opened (mL) Total Used (mL) Total Wasted (mL) Omnipaque 60 60 0 End Study - Maximum Contrast Load Max Contrast Load (mL) 564.4 End Study - Radiation Exposure Fluoro Time (minutes) 4.0 End Study - Patient Disposition Complications Transferred To Interventional Outcome No Telemetry Bed successful
[2017-05-03] MEDS ORDERED: MISC INFORMATION XX ONE ×2 (14:15)
[2017-05-03] MEDS ORDERED: SODIUM CHLORIDE 0.9% FLUSH 10 ML FLUSH IV FLUSH PRN ×2 (14:15)
[2017-05-03] MEDS ORDERED: IOHEXOL 350 MG/ML 100 ML BTL (for Cath Lab) OTHER ONE ×2 (14:54)
[2017-05-03] MEDS ORDERED: PRASUGREL 10 MG TAB PO ONE ×2 (15:00)
[2017-05-03] MEDS: cloNIDine HCL 0.1 MG TAB PO PRN ×2 (15:44)
[2017-05-03] MEDS ORDERED: NITROGLYCERIN 2% OINT 1 GM PACKET TOPICAL STA ×2 (16:22)
[2017-05-03] MEDS: ATORVASTATIN 20 MG TAB PO SCH ×2 (21:05)
[2017-05-04] VITALS (16 sets, daily range): BP systolic 129–142; BP diastolic 77–89; PULSE 53–72; RESP 12–18; TEMP 97.5–98.4; O2SAT 96–98
[2017-05-04] MEDS: TIROFIBAN INFUSION INJ 250 ML IV SCH ×2 (03:48)
[2017-05-04] MEDS: NITROGLYCERIN 2% OINT 1 GM PACKET TOPICAL SCH ×6 (06:00→14:04)
[2017-05-04 06:11] LABS: AUTOMATED NEUTROPHIL # 8.4 TH/MM3 (1.8-7.7); BASOPHIL # 0.1 TH/MM3 (0-0.2); BASOPHIL % 0.5 % (0.0-2.0); EOSINOPHIL # 0.2 TH/MM3 (0-0.4); EOSINOPHIL % 1.7 % (0.0-4.0); HEMATOCRIT 41.4 % (39.0-51.0); HEMOGLOBIN 13.8 GM/DL (13.0-17.0); LYMPH % 19.6 % (9.0-44.0); LYMPHOCYTE # 2.4 TH/MM3 (1.0-4.8); MEAN CELL VOLUME 89.4 FL (80.0-100.0); MEAN CORPUSCULAR HEMOGLOBIN 29.7 PG (27.0-34.0); MEAN CORPUSCULAR HGB CONC 33.3 % (32.0-36.0); MEAN PLATELET VOLUME 9.8 FL (7.0-11.0); MONO % 8.5 % (0.0-8.0); NEUT % 69.7 % (16.0-70.0); PLATELET COUNT 209 TH/MM3 (150-450); RED BLOOD COUNT 4.63 MIL/MM3 (4.50-5.90); RED CELL DISTRIBUTION WIDTH 14.2 % (11.6-17.2); WHITE BLOOD COUNT 12.1 TH/MM3 (4.0-11.0)
[2017-05-04 06:41] LABS: BICARBONATE 24.1 MEQ/L (21.0-32.0); CALCIUM 8.8 MG/DL (8.5-10.1); CREATININE 0.97 MG/DL (0.60-1.30)
[2017-05-04 06:43] LABS: CHOLESTEROL/ HDL RATIO 4.02 RATIO; HDL CHOLESTEROL 38.3 MG/DL (40.0-60.0)
--- NOTE | 2017-05-04 06:49 | MA ---
cc: DOMINIC GARZA M.D. DATE 05/03/2017 PROCEDURE PERFORMED 1. Right heart catheterization 2. Left heart catheterization 3. Left ventriculography 4. Coronary arteriography 5. Direct PCI with bare metal stent proximal LAD INDICATIONS Non-STEMI, hypertension, cardiomyopathy, high-risk nuclear stress test with a gated SPECT ejection fraction of 32%, also [place] Cardiovascular Society class IV angina and congestive heart failure. PROCEDURAL STATEMENT The patient was brought to the cardiac catheterization laboratory, prepped and draped in the usual sterile fashion. 10 cc's of 1% lidocaine was used to locally anesthetize the right common femoral artery. A 4-Anguillan sheath was successfully placed in the right common femoral artery. A 7-Anguillan sheath placed in the right common femoral vein. Right heart catheterization was performed first with the following findings on room air: RA sat 71.1%. PA sat 76.4%. FA sat 99.4%. Cardiac output by Urban 6.6 liters per minute. Cardiac index by Urban 3.0 liters per meter squared per minute. SVR 1213.4 dynes. Left heart catheterization was then performed with the following findings: With a 4-Anguillan JR-4, JL-4 catheter, the LV pressures 140/12 x 15. Ejection fraction 45%. Appears to be global hypokinesis. The left ventricle appears to be enlarged fluoroscopically. The right coronary is dominant and occluded in the proximal segment. The left main coronary artery has no significant disease angiographically. The left circumflex vessel has 40-50% proximal stenosis and gives off a small to medium size first obtuse marginal vessel off the proximal mid segment which has an ostial proximal disease up to 60% angiographically. The second obtuse marginal vessel is a small to medium sized vessel with no significant disease angiographically. The remainder of the AV groove in the left circumflex is a small 0.5 mm vessel with no significant disease angiographically. The LAD has a proximal eccentric 90% stenosis. The distal vessel appears to be occluded. There are grade 2-3 collaterals to the right posterior descending coronary artery. There is filling of the right PDA to the distal RCA. There appears to be a small posterolateral artery imaged as well. There is a medium to large ramus intermedius vessel which has a proximal 60% stenosis. A 6-Anguillan sheath was exchanged for a 4-Anguillan sheath. 70 units/kilo of heparin was administered. A 6-Anguillan XP 3.5 guide, 0.014 Prowater guidewire and a 309 Integrity stent were used to directly stent the proximal LAD with one inflation to 10 atmospheres for 20 seconds. The stenosis went from 90% to 0% with ELIAN-III flow. Note, there was due to diffuse spasm in the left main in the vxz-ff-ospmah LAD post stenting. I removed the wire and gave the patient 200 micrograms intracoronary nitroglycerin. This resulted in resolution of the spasm in the left main and there actually appeared to be flow in the distal anterolateral LAD which is transapical. It appears to from [id number] collaterals. CONCLUSION 1. Non-STEMI cardiomyopathy. Suspect probable culprit is a 90% proximal LAD which is supplying a collateralized right PDA and SHIVANI. 2. Otherwise moderate to severe three-vessel coronary disease in a right-dominant system. 3. Mild LV systolic dysfunction with an EF of 45% with a cardiac index of 3.0 liters per meter squared per minute. 4. Possible oqim-vy-umqrs shunt with a step up of oxygenation from the right atrium to the pulmonary artery from 71.1% to 76.4% which is a 5.3% increase. 5. Successful direct PCI bare metal stent of the proximal LAD from 90% to 0% with ELIAN-III flow. Note, this significantly improved perfusion to the right PDA and SHIVANI. The right PDA was a medium to large vessel approaching the apex and the right SHIVANI was a small to medium-sized vessel. There was filling of maybe 4 or 5 mm of the distal right coronary artery with occlusion after that. RECOMMENDATIONS 1. Effient 60 mg p.o. load then 10 mg daily for 10-15 Months. 2. Aspirin 162 mg daily indefinitely. 3. Aggrastat drip per protocol. 4. Lipid management to NCCN guideline goals namely LDL less than 70. 5. Continue beta-alexander and KARTHIK inhibitor. 6. Again, strongly advise the patient to stop smoking. MD MIKE Brooks/MIGUEL ANGEL /2:06 PM /6:34 AM
--- NOTE | 2017-05-04 06:49 | MA ---
cc: DOMINIC GARZA M.D. DATE 05/03/2017 PROCEDURE PERFORMED 1. Right heart catheterization 2. Left heart catheterization 3. Left ventriculography 4. Coronary arteriography 5. Direct PCI with bare metal stent proximal LAD INDICATIONS Non-STEMI, hypertension, cardiomyopathy, high-risk nuclear stress test with a gated SPECT ejection fraction of 32%, also [place] Cardiovascular Society class IV angina and congestive heart failure. PROCEDURAL STATEMENT The patient was brought to the cardiac catheterization laboratory, prepped and draped in the usual sterile fashion. 10 cc's of 1% lidocaine was used to locally anesthetize the right common femoral artery. A 4-[place] Citizen sheath was successfully placed in the right common femoral artery. A 7-[place] Citizen sheath placed in the right common femoral vein. Right heart catheterization was performed first with the following findings on room air: RA sat 71.1%. PA sat 76.4%. FA sat 99.4%. Cardiac output by Urban 6.6 liters per minute. Cardiac index by Urban 3.0 liters per meter squared per minute. SVR 1213.4 dynes. Left heart catheterization was then performed with the following findings: With a 4-[place] Citizen JR-4, JL-4 catheter, the LV pressures 140/12 x 15. Ejection fraction 45%. Appears to be global hypokinesis. The left ventricle appears to be enlarged fluoroscopically. The right coronary is dominant and occluded in the proximal segment. The left main coronary artery has no significant disease angiographically. The left circumflex vessel has 40-50% proximal stenosis and gives off a small to medium size first obtuse marginal vessel off the proximal mid segment which has an ostial proximal disease up to 60% angiographically. The second obtuse marginal vessel is a small to medium sized vessel with no significant disease angiographically. The remainder of the AV groove in the left circumflex is a small 0.5 mm vessel with no significant disease angiographically. The LAD has a proximal eccentric 90% stenosis. The distal vessel appears to be occluded. There are grade 2-3 collaterals to the right posterior descending coronary artery. There is filling of the right PDA to the distal RCA. There appears to be a small posterolateral artery imaged as well. There is a medium to large ramus intermedius vessel which has a proximal 60% stenosis. A 6-[place] Citizen sheath was exchanged for a 4-[place] Citizen sheath. 70 units/kilo of heparin was administered. A 6-[place] Citizen XP 3.5 guide, 0.014 Prowater guidewire and a 309 Integrity stent were used to directly stent the proximal LAD with one inflation to 10 atmospheres for 20 seconds. The stenosis went from 90% to 0% with ELIAN-III flow. Note, there was due to diffuse spasm in the left main in the opi-pq-lcutue LAD post stenting. I removed the wire and gave the patient 200 micrograms intracoronary nitroglycerin. This resulted in resolution of the spasm in the left main and there actually appeared to be flow in the distal anterolateral LAD which is transapical. It appears to from ukrr-fa-drxf collaterals. CONCLUSION 1. Non-STEMI cardiomyopathy. Suspect probable culprit is a 90% proximal LAD which is supplying a collateralized right PDA and SHIVANI. 2. Otherwise moderate to severe three-vessel coronary disease in a right-dominant system. 3. Mild LV systolic dysfunction with an EF of 45% with a cardiac index of 3.0 liters per meter squared per minute. 4. Possible yfny-mx-ombvl shunt with a step up of oxygenation from the right atrium to the pulmonary artery from 71.1% to 76.4% which is a 5.3% increase. 5. Successful direct PCI bare metal stent of the proximal LAD from 90% to 0% with ELIAN-III flow. Note, this significantly improved perfusion to the right PDA and SHIVANI. The right PDA was a medium to large vessel approaching the apex and the right SHIVANI was a small to medium-sized vessel. There was filling of maybe 4 or 5 mm of the distal right coronary artery with occlusion after that. RECOMMENDATIONS 1. Effient 60 mg p.o. load then 10 mg daily for 10-15 Months. 2. Aspirin 162 mg daily indefinitely. 3. Aggrastat drip per protocol. 4. Lipid management to NCCN guideline goals namely LDL less than 70. 5. Continue beta-alexander and KARTHIK inhibitor. 6. Again, strongly advise the patient to stop smoking. MD MIKE Brooks/MIGUEL ANGEL /2:06 PM /6:34 AM
--- NOTE | 2017-05-04 06:49 | MA ---
cc: DOMINIC GARZA M.D. DATE 05/03/2017 PROCEDURE PERFORMED 1. Right heart catheterization 2. Left heart catheterization 3. Left ventriculography 4. Coronary arteriography 5. Direct PCI with bare metal stent proximal LAD INDICATIONS Non-STEMI, hypertension, cardiomyopathy, high-risk nuclear stress test with a gated SPECT ejection fraction of 32%, also [place] Cardi[employer] Society class IV angina and congestive heart failure. PROCEDURAL STATEMENT The patient was brought to the cardiac catheterization laboratory, prepped and draped in the usual sterile fashion. 10 cc's of 1% lidocaine was used to locally anesthetize the right common femoral artery. A 4-Canadian sheath was successfully placed in the right common femoral artery. A 7-Canadian sheath placed in the right common femoral vein. Right heart catheterization was performed first with the following findings on room air: RA sat 71.1%. PA sat 76.4%. FA sat 99.4%. Cardiac output by Urban 6.6 liters per minute. Cardiac index by Urban 3.0 liters per meter squared per minute. SVR 1213.4 dynes. Left heart catheterization was then performed with the following findings: With a 4-Canadian JR-4, JL-4 catheter, the LV pressures 140/12 x 15. Ejection fraction 45%. Appears to be global hypokinesis. The left ventricle appears to be enlarged fluoroscopically. The right coronary is dominant and occluded in the proximal segment. The left main coronary artery has no significant disease angiographically. The left circumflex vessel has 40-50% proximal stenosis and gives off a small to medium size first obtuse marginal vessel off the proximal mid segment which has an ostial proximal disease up to 60% angiographically. The second obtuse marginal vessel is a small to medium sized vessel with no significant disease angiographically. The remainder of the AV groove in the left circumflex is a small 0.5 mm vessel with no significant disease angiographically. The LAD has a proximal eccentric 90% stenosis. The distal vessel appears to be occluded. There are grade 2-3 collaterals to the right posterior descending coronary artery. There is filling of the right PDA to the distal RCA. There appears to be a small posterolateral artery imaged as well. There is a medium to large ramus intermedius vessel which has a proximal 60% stenosis. A 6-Canadian sheath was exchanged for a 4-Canadian sheath. 70 units/kilo of heparin was administered. A 6-Canadian XP 3.5 guide, 0.014 Prowater guidewire and a 309 Integrity stent were used to directly stent the proximal LAD with one inflation to 10 atmospheres for 20 seconds. The stenosis went from 90% to 0% with ELIAN-III flow. Note, there was due to diffuse spasm in the left main in the [id number] LAD post stenting. I removed the wire and gave the patient 200 micrograms intracoronary nitroglycerin. This resulted in resolution of the spasm in the left main and there actually appeared to be flow in the distal anterolateral LAD which is transapical. It appears to from [id number] collaterals. CONCLUSION 1. Non-STEMI cardiomyopathy. Suspect probable culprit is a 90% proximal LAD which is supplying a collateralized right PDA and SHIVANI. 2. Otherwise moderate to severe three-vessel coronary disease in a right-dominant system. 3. Mild LV systolic dysfunction with an EF of 45% with a cardiac index of 3.0 liters per meter squared per minute. 4. Possible [id number]-[id number] shunt with a step up of oxygenation from the right atrium to the pulmonary artery from 71.1% to 76.4% which is a 5.3% increase. 5. Successful direct PCI bare metal stent of the proximal LAD from 90% to 0% with ELIAN-III flow. Note, this significantly improved perfusion to the right PDA and SHIVANI. The right PDA was a medium to large vessel approaching the apex and the right SHIVANI was a small to medium-sized vessel. There was filling of maybe 4 or 5 mm of the distal right coronary artery with occlusion after that. RECOMMENDATIONS 1. Effient 60 mg p.o. load then 10 mg daily for 10-15 Months. 2. Aspirin 162 mg daily indefinitely. 3. Aggrastat drip per protocol. 4. Lipid management to NCCN guideline goals namely LDL less than 70. 5. Continue beta-alexander and KARTHIK inhibitor. 6. Again, strongly advise the patient to stop smoking. MD MIKE Brooks/MIGUEL ANGEL /2:06 PM /6:34 AM
[2017-05-04] MEDS: SODIUM CHLORIDE 0.9% FLUSH 10 ML FLUSH IV FLUSH SCH ×2 (08:50)
[2017-05-04] MEDS: METOPROLOL TARTRATE 25 MG TAB PO SCH ×2 (08:52)
[2017-05-04] MEDS: DOCUSATE SODIUM 50 MG/SENNA 8.6 MG TAB PO SCH ×2 (08:52)
[2017-05-04] MEDS: HYDROCHLOROTHIAZIDE 12.5 MG CAP PO SCH ×2 (08:53)
[2017-05-04] MEDS: LISINOPRIL 10 MG TAB PO SCH ×2 (08:54)
[2017-05-04] MEDS: ASPIRIN 325 MG TAB PO SCH ×2 (09:00)
[2017-05-04] MEDS ORDERED: PRASUGREL 10 MG TAB PO SCH ×2 (09:00)
[2017-05-04] MEDS ORDERED: ASPIRIN 81 MG CHEW TAB PO SCH ×2 (09:00)
--- NOTE | 2017-05-04 12:28 | HHI.PR ---
Subjective Remarks Pt feeling well. no CP/SOB/N/V Objective Vitals Vital Signs Date Time Temp Pulse Resp B/P (MAP) Pulse Ox O2 Delivery O2 Flow Rate FiO2 05/04/17 10:00 66 05/04/17 09:00 72 05/04/17 08:00 60 05/04/17 07:30 97.5 60 17 129/77 (94) 96 05/04/17 07:10 58 05/04/17 06:00 54 05/04/17 05:00 60 05/04/17 04:00 53 05/04/17 04:00 98.4 64 14 138/83 (101) 97 05/04/17 03:00 56 05/04/17 02:00 58 05/04/17 01:00 56 05/04/17 00:00 97.5 61 12 130/89 (103) 97 05/04/17 00:00 56 05/03/17 23:00 61 05/03/17 22:00 60 05/03/17 21:00 72 05/03/17 20:00 70 05/03/17 20:00 98.2 70 12 122/80 (94) 96 05/03/17 19:00 76 05/03/17 18:00 74 05/03/17 17:00 64 05/03/17 16:00 62 05/03/17 15:00 60 05/03/17 15:00 98.0 60 18 167/87 (113) 99 I/O 05/03/17 05/03/17 05/03/17 05/04/17 05/04/17 05/04/17 07:00 15:00 23:00 07:00 15:00 23:00 Intake Total 240 ml 240 ml 240 ml 81 ml Output Total 850 ml 850 ml Balance 240 ml -610 ml -610 ml 81 ml Intake Oral 240 ml 240 ml IV Total 240 ml 81 ml Output Urine Total 850 ml 850 ml # Voids 2 4 # Bowel Movements 1 Result Diagram: 05/04/17 0436 05/04/17 0436 Imaging Last Impressions Myocardial Perfusion Scan Nuc Med 05/01/17 0000 Signed Impressions: Service Date/Time: Monday, May 01, 2017 11:03 - CONCLUSION: 1. Small fixed inferolateral wall defect. 2. No significant stress induced perfusion abnormality. 3. Global hypokinesia and ventriculomegaly with EF of 32%%. RISK CATEGORY: High (>3%% Annual Mortality Rate) Jono Garcia MD Chest X-Ray 04/30/17 1528 Signed Impressions: Service Date/Time: Sunday, April 30, 2017 15:53 - CONCLUSION: No acute disease. Segundo Grover MD Objective Remarks GEN: appears comfortable, sitting up on recliner CV: Regular rate and rhythm without obvious murmurs LUNGS: Clear to auscultation bilaterally. Normal respiratory effort. No wheezes GI: Soft, nontender, nondistended. Bowel sounds WNL. EXT: No edema. NEURO/PSYCH: Afocal. Awake, alert. Appropriate insight and judgment. Procedures A/P Problem List: (1) Chest pain in adult ICD Code: R07.9 - Chest pain, unspecified Status: Acute (2) Accelerated hypertension ICD Code: I10 - Essential (primary) hypertension Status: Acute (3) Elevated random blood glucose level ICD Code: R73.09 - Other abnormal glucose (4) Tobacco abuse ICD Code: Z72.0 - Tobacco use (5) Hyperlipidemia ICD Code: E78.5 - Hyperlipidemia, unspecified Assessment and Plan (1) Chest pain in adult Patient presenting with chest pain and elevated troponins. NSTEMI. * Cardiology following and s/p cardiac cath w successful direct PCI bare metal stent of the proximal LAD * Nuclear stress test showing small fixed inferolateral wall defect w global hypokinesia and ventriculomegaly. EF 32%, high risk. * ECHO pending (2) Accelerated hypertension BP significantly elevated on presentation. Continue Nitroglycerin patch and HCTZ /Lisinopril. BPs much better controlled. Clonidine ordered PRN as needed. (3) Elevated random blood glucose level Hemoglobin A1c is 6.1. monitor at this time (4) Tobacco abuse Encouraged cessation, patient counseled. (5) Hyperlipidemia Lipid panel reviewed showing slight elevation of LDL and cholesterol. Continue Atorvastatin 20 mg PO HS. Diet: Heart healthy diet/fluid restriction Discharge Planning awaiting clearance from cards. ECHO pending Adeline Mensah MD May 04, 2017 12:28
--- NOTE | 2017-05-04 13:18 | PD.CARD.PN ---
Subjective Subjective Remarks alert in nad, denies chest pain, chest pain resolved Objective Medications Current Medications Medications (Trade) Dose Ordered Sig/Lindsay Route Start Time Stop Time Status Last Admin (Tylenol) 650 mg Q4H PRN PO 04/30/17 17:15 (Zofran Inj) 4 mg Q6H PRN IVP 04/30/17 17:15 (Narcan Inj) 0.4 mg UNSCH PRN IV PUSH 04/30/17 17:15 (Carrie-Colace) 1 tab BID PO 04/30/17 21:00 05/04/17 08:52 (Milk Of Magnesia Liq) 30 ml Q12H PRN PO 04/30/17 17:15 (Senokot) 17.2 mg Q12H PRN PO 04/30/17 17:15 (Lactulose Liq) 30 ml DAILY PRN PO 04/30/17 17:15 (Microzide) 12.5 mg DAILY PO 04/30/17 17:15 05/04/17 08:53 (Prinivil) 10 mg DAILY PO 04/30/17 17:15 05/04/17 08:54 (Catapres) 0.1 mg Q6H PRN PO 04/30/17 17:15 05/03/17 15:44 (Nitroglycerin 2% Oint) 0.5 inch Q6HR TOPICAL 04/30/17 18:00 05/04/17 06:00 (Aspirin) 325 mg DAILY PO 05/01/17 09:00 05/03/17 08:42 (Lipitor) 20 mg HS PO 05/01/17 21:00 05/03/17 21:05 (Lopressor) 25 mg Q12HR PO 05/01/17 13:30 05/04/17 08:52 (NS Flush) 2 ml UNSCH PRN IV FLUSH 05/03/17 14:15 (NS Flush) 2 ml BID IV FLUSH 05/03/17 21:00 05/04/17 08:50 (Aspirin Chew) 162 mg DAILY PO 05/04/17 09:00 05/04/17 08:52 (Effient) 10 mg DAILY PO 05/04/17 09:00 05/04/17 08:53 Vital Signs / I&O Vital Signs Date Time Temp Pulse Resp B/P (MAP) Pulse Ox O2 Delivery O2 Flow Rate FiO2 05/04/17 10:00 66 05/04/17 09:00 72 05/04/17 08:00 60 05/04/17 07:30 97.5 60 17 129/77 (94) 96 05/04/17 07:10 58 05/04/17 06:00 54 05/04/17 05:00 60 05/04/17 04:00 53 05/04/17 04:00 98.4 64 14 138/83 (101) 97 05/04/17 03:00 56 05/04/17 02:00 58 05/04/17 01:00 56 05/04/17 00:00 97.5 61 12 130/89 (103) 97 05/04/17 00:00 56 05/03/17 23:00 61 05/03/17 22:00 60 05/03/17 21:00 72 05/03/17 20:00 70 05/03/17 20:00 98.2 70 12 122/80 (94) 96 05/03/17 19:00 76 05/03/17 18:00 74 05/03/17 17:00 64 05/03/17 16:00 62 05/03/17 15:00 60 05/03/17 15:00 98.0 60 18 167/87 (113) 99 I/O 05/03/17 05/03/17 05/03/17 05/04/17 05/04/17 05/04/17 07:00 15:00 23:00 07:00 15:00 23:00 Intake Total 240 ml 240 ml 240 ml 81 ml Output Total 850 ml 850 ml Balance 240 ml -610 ml -610 ml 81 ml Intake Oral 240 ml 240 ml IV Total 240 ml 81 ml Output Urine Total 850 ml 850 ml # Voids 2 4 # Bowel Movements 1 Physical Exam GENERAL: SKIN: Warm and dry. HEAD: Normocephalic. EYES: No scleral icterus. No injection or drainage. NECK: Supple, trachea midline. No JVD or lymphadenopathy. CARDIOVASCULAR: Regular rate and rhythm without murmurs, gallops, or rubs. RESPIRATORY: Breath sounds equal bilaterally. No accessory muscle use. GASTROINTESTINAL: Abdomen soft, non-tender, nondistended. MUSCULOSKELETAL: No cyanosis, or edema. BACK: Nontender without obvious deformity. No CVA tenderness. Laboratory Laboratory Tests Test 05/04/17 04:36 White Blood Count 12.1 TH/MM3 Red Blood Count 4.63 MIL/MM3 Hemoglobin 13.8 GM/DL Hematocrit 41.4 % Mean Corpuscular Volume 89.4 FL Mean Corpuscular Hemoglobin 29.7 PG Mean Corpuscular Hemoglobin Concent 33.3 % Red Cell Distribution Width 14.2 % Platelet Count 209 TH/MM3 Mean Platelet Volume 9.8 FL Neutrophils (%) (Auto) 69.7 % Lymphocytes (%) (Auto) 19.6 % Monocytes (%) (Auto) 8.5 % Eosinophils (%) (Auto) 1.7 % Basophils (%) (Auto) 0.5 % Neutrophils # (Auto) 8.4 TH/MM3 Lymphocytes # (Auto) 2.4 TH/MM3 Monocytes # (Auto) 1.0 TH/MM3 Eosinophils # (Auto) 0.2 TH/MM3 Basophils # (Auto) 0.1 TH/MM3 CBC Comment DIFF FINAL Differential Comment Blood Urea Nitrogen 14 MG/DL Creatinine 0.97 MG/DL Random Glucose 90 MG/DL Calcium Level 8.8 MG/DL Sodium Level 140 MEQ/L Potassium Level 4.0 MEQ/L Chloride Level 107 MEQ/L Carbon Dioxide Level 24.1 MEQ/L Anion Gap 9 MEQ/L Estimat Glomerular Filtration Rate 82 ML/MIN Total Creatine Kinase 54 U/L Triglycerides Level 139 MG/DL Cholesterol Level 154 MG/DL LDL Cholesterol 88 MG/DL HDL Cholesterol 38.3 MG/DL Cholesterol/HDL Ratio 4.02 RATIO Assessment and Plan Problem List: (1) NSTEMI (non-ST elevated myocardial infarction) ICD Codes: I21.4 - Non-ST elevation (NSTEMI) myocardial infarction (2) Tobacco abuse ICD Codes: Z72.0 - Tobacco use (3) Chest pain in adult ICD Codes: R07.9 - Chest pain, unspecified Status: Acute (4) Troponin I above reference range ICD Codes: R74.8 - Abnormal levels of other serum enzymes Status: Acute (5) Accelerated hypertension ICD Codes: I10 - Essential (primary) hypertension Status: Acute (6) Elevated random blood glucose level ICD Codes: R73.09 - Other abnormal glucose (7) Hypercholesteremia ICD Codes: E78.00 - Pure hypercholesterolemia, unspecified (8) Hyperlipidemia ICD Codes: E78.5 - Hyperlipidemia, unspecified Assessment and Plan 1.) NSTEMI - continue aspirin, plavix, lipitor, lopressor, assymptomatic s/p bms prox lad 05/03/17; f/u with me in office 05/05/17 Harmeet Wilson MD May 04, 2017 13:18
[2017-05-04] MEDS ORDERED: HYDR12.57 PO ×2 (13:46)
[2017-05-04] MEDS ORDERED: PRAS10TA PO ×2 (13:46)
[2017-05-04] MEDS ORDERED: ATOR20TA15 PO ×2 (13:46)
[2017-05-04] MEDS ORDERED: ASPI81CH25 PO ×2 (13:46)
[2017-05-04] MEDS ORDERED: LISI10TA3 PO ×2 (13:46)
[2017-05-04] MEDS ORDERED: METO25TA3 PO ×2 (13:46)
--- NOTE | 2017-05-04 13:49 | HHI.DS ---
Discharge Summary Admission Date May 02, 2017 at 10:13 Discharge Date: May 04, 2017 Admitting Diagnosis chest pain (1) Chest pain in adult ICD Code: R07.9 - Chest pain, unspecified Status: Acute (2) Accelerated hypertension ICD Code: I10 - Essential (primary) hypertension Status: Acute (3) Elevated random blood glucose level ICD Code: R73.09 - Other abnormal glucose (4) Tobacco abuse ICD Code: Z72.0 - Tobacco use (5) Hyperlipidemia ICD Code: E78.5 - Hyperlipidemia, unspecified Procedures s/p cardiac cath Brief History - From Admission Mr. Nielsen is a 52-year-old male with a medical history significant for hypertension who presented to the ED with chest pain. Patient states he has noticed the chest pain about a month ago, it was very labile and intermittent therefore patient thought maybe it was related to an indigestion problem and would eventually go away. Patient states that the chest pain has progressively gotten worse and more frequent over the past month. Patient states the pain is always in his midsternal chest with radiation down his left arm, is pressure- like and tight in nature, lasts roughly 15-20 minutes and slowly subsides on its own, worse with activity, goes away with rest, rated an 8/10 on pain scale at its worse, and happens multiple times per day depending on his activity. Does admit to associated shortness of breath and diaphoresis with episodes of chest pain. Denies any nausea and vomiting. Denies any recent illness including fever, chills cough, headache, dizziness, lightheadedness, abdominal pain, n/v/ d or dysuria. Denies any changes in medications. Does admit to smoking 1 ppd for the past 35 years. Does admit to drinking 3 alcoholic drinks per night. Patient states he has never had this pain prior to one month ago. Does not follow with a PCP, has been relatively healthy. CBC/BMP: 05/04/17 0436 05/04/17 0436 Significant Findings Laboratory Tests Test 05/03/17 06:05 05/04/17 04:36 White Blood Count 13.4 TH/MM3 (4.0-11.0) 12.1 TH/MM3 (4.0-11.0) Estimat Glomerular Filtration Rate 86 ML/MIN (>89) 82 ML/MIN (>89) Monocytes (%) (Auto) 8.5 % (0.0-8.0) Neutrophils # (Auto) 8.4 TH/MM3 (1.8-7.7) Monocytes # (Auto) 1.0 TH/MM3 (0-0.9) HDL Cholesterol 38.3 MG/DL (40.0-60.0) Imaging Last Impressions Myocardial Perfusion Scan Nuc Med 05/01/17 0000 Signed Impressions: Service Date/Time: Monday, May 01, 2017 11:03 - CONCLUSION: 1. Small fixed inferolateral wall defect. 2. No significant stress induced perfusion abnormality. 3. Global hypokinesia and ventriculomegaly with EF of 32%%. RISK CATEGORY: High (>3%% Annual Mortality Rate) Jono Garcia MD Chest X-Ray 04/30/17 1528 Signed Impressions: Service Date/Time: Sunday, April 30, 2017 15:53 - CONCLUSION: No acute disease. Segundo Grover MD PE at Discharge GEN: appears comfortable, sitting up on recliner CV: Regular rate and rhythm without obvious murmurs LUNGS: Clear to auscultation bilaterally. Normal respiratory effort. No wheezes GI: Soft, nontender, nondistended. Bowel sounds WNL. EXT: No edema. NEURO/PSYCH: Afocal. Awake, alert. Appropriate insight and judgment. Hospital Course 1) Chest pain in adult Patient presenting with chest pain and elevated troponins. NSTEMI. * Cardiology following and s/p cardiac cath w successful direct PCI bare metal stent of the proximal LAD * Nuclear stress test showing small fixed inferolateral wall defect w global hypokinesia and ventriculomegaly. EF 32%, high risk. * ECHO pending. * Pt to f/u w Dr. Wilson tomorrow 05/05/17. Pt has been counseled agains smoking. Pt also encouraged to establish w a primary care physician. (2) Accelerated hypertension BP significantly elevated on presentation. Continue HCTZ/Lisinopril. BPs much better controlled. Clonidine ordered PRN as needed. (3) Elevated random blood glucose level Hemoglobin A1c is 6.1. Monitor as an outpatient. Pt Condition on Discharge: Stable Discharge Disposition: Discharge Home Discharge Time: > 30 minutes Discharge Instructions DIET: Follow Instructions for: Heart Healthy Diet, Diabetic Diet Activities you can perform: Regular-No Restrictions Follow up Referrals: Cardiology - 05/05/17 PCP Follow-up - 1 Week New Medications: Aspirin (Aspirin Low Strength) 81 Mg Chew 162 MG PO DAILY, #60 EA Atorvastatin (Atorvastatin) 20 Mg Tab 20 MG PO HS, #30 TAB Hydrochlorothiazide (Hydrochlorothiazide) 12.5 Mg Cap 12.5 MG PO DAILY, #30 CAP Lisinopril (Lisinopril) 10 Mg Tab 10 MG PO DAILY, #30 TAB Metoprolol Tartrate (Metoprolol Tartrate) 25 Mg Tab 25 MG PO Q12HR, #60 TAB Prasugrel (Effient) 10 Mg Tab 10 MG PO DAILY, #30 TAB Adeline Mensah MD May 04, 2017 13:48
--- NOTE | 2017-05-04 18:39 | ECHRPT ---
Indication: HEART FALURE CONCLUSIONS Mildly dilated left ventricle. Mild concentric left ventricular hypertrophy. The left ventricular systolic function is severely reduced with an estimated ejection fraction in th e range of 30-35% probably closer to 35%. The left atrial size is moderately dilated. [id number] mitral valve regurgitation. The pulmonary valve is not well visualized. BP: 138 / 83 HR: Rhythm: Sinus MEASUREMENTS (Male / Female) Normal Values Technical Quality:Fair 2D ECHO LV Diastolic Diameter PLAX 6.3 cm 4.2 - 5.9 / 3.9 - 5.3 cm LV Systolic Diameter PLAX 5.5 cm IVS Diastolic Thickness 1.2 cm 0.6 - 1.0 / 0.6 - 0.9 cm LVPW Diastolic Thickness 1.2 cm 0.6 - 1.0 / 0.6 - 0.9 cm LV Relative Wall Thickness 0.4 LVOT Diameter 2.3 cm Aortic Root Diameter 3.4 cm LA Systolic Diameter LX 3.8 cm 3.0 - 4.0 / 2.7 - 3.8 cm M-MODE AV Cusp Separation MM 1.9 cm DOPPLER AV Peak Velocity 138.0 cm/s AV Peak Gradient 7.6 mmHg AV Mean Gradient 4.0 mmHg AV Velocity Time Integral 22.8 cm LVOT Peak Velocity 81.1 cm/s LVOT Peak Gradient 2.6 mmHg LVOT Velocity Time Integral 15.1 cm AV Area Cont Eq vti 2.8 cm AV Area Cont Eq pk 2.4 cm Mitral E Point Velocity 32.6 cm/s Mitral A Point Velocity 51.1 cm/s Mitral E to A Ratio 0.6 LV E' Lateral Velocity 9.8 cm/s Mitral E to LV E' Lateral Ratio 3.3 LV E' Septal Velocity 5.9 cm/s Mitral E to LV E' Septal Ratio 5.6 TR Peak Velocity 166.0 cm/s TR Peak Gradient 11.0 mmHg PV Peak Velocity 60.9 cm/s PV Peak Gradient 1.5 mmHg FINDINGS LEFT VENTRICLE Mildly dilated left ventricle. Mild concentric left ventricular hypertrophy. The left ventricular systolic function is severely reduced with an estimated ejection fraction in th e range of 30-35% probably closer to 35%. RIGHT VENTRICLE Normal right ventricular size and systolic function. LEFT ATRIUM The left atrial size is moderately dilated. RIGHT ATRIUM The right atrial size is normal. ATRIAL SEPTUM Normal atrial septal thickness without atrial level shunting by limited color doppler interrogation. AORTA The aortic root and proximal ascending aorta are normal in size on limited imaging. MITRAL VALVE [id number] mitral valve regurgitation. AORTIC VALVE Trileaflet aortic valve. No aortic valve stenosis or regurgitation. TRICUSPID VALVE Structurally normal tricuspid valve. No tricuspid valve stenosis or regurgitation. PULMONARY VALVE The pulmonary valve is not well visualized. VESSELS The inferior vena cava is normal in size. PERICARDIUM No pericardial effusion. Macho Hall MD (Electronically Signed) Final Date:04 May 2017 18:39
--- NOTE | 2017-05-04 20:01 | EKG ---
Date Performed: 05/04/2017 Time Performed: 05:35:32 PTAGE: 52 years EKG: Sinus bradycardia WHEN COMPARED TO PRIOR EKG PATIENT IS NOW BRADYCARDIC Normal ECG except f or rate PREVIOUS TRACING : 04/30/2017 21.20 DOCTOR: Xiao Swann Interpretating Date/Time 05/04/2017 20:00:11
== END 2017-05-04 16:12 | disposition home or self-care (01) | DRG 249 ==
LOC: PHED 15:02 → PHEDA 17:10 → PH3A 17:43 → HCIS 05-01 15:51 → OBSVTOIN 05-02 10:13
PROVIDERS: ADMIT Hospitalist; ATTEND Hospitalist
PROC: 4A023N8 Measurement of Cardiac Sampling and Pressure, Bilateral, Percutaneous Approach (ICD-10-PCS; 2017-05-03)
PROC: B2111ZZ Fluoroscopy of Multiple Coronary Arteries using Low Osmolar Contrast (ICD-10-PCS; 2017-05-03)
PROC: B2151ZZ Fluoroscopy of Left Heart using Low Osmolar Contrast (ICD-10-PCS; 2017-05-03)
PROC: 02703DZ Dilation of Coronary Artery, One Artery with Intraluminal Device, Percutaneous Approach (ICD-10-PCS; principal; 2017-05-03 13:45)
DX: I21.4 Non-ST elevation (NSTEMI) myocardial infarction (principal); I11.0 Hypertensive heart disease with heart failure; I42.9 Cardiomyopathy, unspecified; I50.9 Heart failure, unspecified; I25.111 Atherosclerotic heart disease of native coronary artery with angina pectoris with documented spasm; E78.5 Hyperlipidemia, unspecified; R73.09 Other abnormal glucose; F17.210 Nicotine dependence, cigarettes, uncomplicated; Z85.47 Personal history of malignant neoplasm of testis; Z82.49 Family history of ischemic heart disease and other diseases of the circulatory system
CPT/HCPCS: 71010; 78452; 80048; 80053; 80061; 82550; 82552; 82810; 83036; 84484; 85002; 85025; 85027; 85610; 85730; 92928; 93005; 93017; 93306; 93460; A9502; C1769; C1876; C1887; C1893; J1644; J2250; J2785; J3246; Q9967

== ENCOUNTER 2017-05-25 03:32 | Inpatient (IN) | payer OTHER ==
[~2017-05-25] VITALS: Ht 182.9 cm; Wt 100.4 kg
[2017-05-25] VITALS (21 sets, daily range): BP systolic 125–172; BP diastolic 62–88; PULSE 65–89; RESP 11–41; TEMP 97.7–98.9; O2SAT 95–100
[~2017-05-25 03:32] MED LIST changes: +ASPI81CH25 PO; +ATOR20TA15 PO; -BENA25TA8 PO; -EPIP0.3I IM; +HYDR12.57 PO; +LISI10TA3 PO; -MEDR4PAK3 PO; +METO25TA3 PO; +PRAS10TA PO
[2017-05-25] MEDS ORDERED: ATOR80TA45 PO (03:48)
[2017-05-25] MEDS ORDERED: AMLO5 PO (03:48)
[2017-05-25] MEDS ORDERED: ISOS20TA PO (03:48)
--- NOTE | 2017-05-25 04:28 | PD ---
HPI Chief Complaint: Facial Pain or Swelling Time Seen by Provider: 04:19 Travel History International Travel<30 days: No Contact w/Intl Traveler<30days: No Traveled to known affect area: No History of Present Illness HPI The patient is a 52 year old male who presents to the [facility] emergency department with a history of swelling of his lips that began at 8 AM yesterday. He then noticed it was involving the right side of his tongue 1-2 hours prior to arrival which prompted him to come in to the ER. He denies any cp or sob. He reports having intermittent problems with this since 2006 when he was diagnosed with idiopathic angioedema. The patient was recently admitted to the hospital with a non-STEMI. The patient underwent cardiac catheterization and had a stent placed. The patient was also newly discharged home on multiple medications including lisinopril. He denies having any rashes. On review of systems, he denies having any recent cough, congestion, neck pain, abdominal pain, vomiting, diarrhea, urinary symptoms, or neurologic symptoms. PCP: none. [facility] Past Medical History Narrative Medical The patient's past medical history is significant for idiopathic angioedema, hyperlipidemia, hypertension, CAD with Non-STEMI, and testicular cancer in 1995. Blood Disorders: No Cancer: Yes (TESTICULAR) Cardiovascular Problems: Yes High Cholesterol: Yes Chest Pain: Yes Diminished Hearing: No Endocrine: No Genitourinary: No Hypertension: Yes Immune Disorder: No Inguinal Hernia: Yes ( A CHILD) Medical other: Yes (IDIOPATHIC ANGIOEDEMA) Musculoskeletal: No Neurologic: No Psychiatric: No Reproductive: No Respiratory: No Past Surgical History Narrative Surgical The patient's past surgical history is significant for cardiac stent placement, hernia repair in childhood, testicular cancer with orchiectomy on the right- s/ p chemotherapy and radiation- 1995, right foot surgery. Abdominal Surgery: No AICD: No Arteriovenous Shunt: No Cardiac Surgery: No Coronary Stent: Yes (X 1) Ear Surgery: No Endocrine Surgery: No Eye Surgery: No Gynecologic Surgery: No Insulin Pump: No Joint Replacement: No Oral Surgery: No Pacemaker: No Thoracic Surgery: No Other Surgery: Yes (RIGHT TESTICLE REMOVED FOR CANCER 1995) Social History Alcohol Use: No Tobacco Use: Yes (he is down to 1-2 cigarettes PER DAY) Substance Use: No Allergies-Medications (Allergen,Severity, Reaction): Coded Allergies: No Known Allergies (Unverified Allergy, Unknown, 04/30/17) Reported Meds & Prescriptions Reported Meds & Active Scripts Active Hydrochlorothiazide 12.5 Mg Cap 12.5 Mg PO DAILY Aspirin Low Strength (Aspirin) 81 Mg Chew 162 Mg PO DAILY Metoprolol Tartrate 25 Mg Tab 25 Mg PO Q12HR Effient (Prasugrel) 10 Mg Tab 10 Mg PO DAILY Reported Isosorbide Mononitrate 20 Mg Tab 60 Mg PO DAILY Take 2 doses 7 hours apart. Norvasc (Amlodipine Besylate) 5 Mg Tab 5 Mg PO DAILY Atorvastatin (Atorvastatin Calcium) 80 Mg Tab 80 Mg PO HS Review of Systems Except as stated in HPI: all other systems reviewed are Neg General / Constitutional: No: Fever Eyes: No: Visual changes HENT: Positive: Other (tongue swelling) Cardiovascular: No: Chest Pain or Discomfort Respiratory: No: Shortness of Breath Gastrointestinal: No: Abdominal Pain Genitourinary: No: Dysuria Musculoskeletal: No: Pain Skin: Positive Other (swelling of his lips and tongue), No Rash Neurologic: No: Weakness, Focal Abnormalities, Change in Mentation, Sensory Disturbance Psychiatric: No: Depression Endocrine: No: Polydipsia Hematologic/Lymphatic: No: Easy Bruising Physical Exam Narrative General: The patient is a well-developed well-nourished male in no acute distress. Head and Neck exam: Head is normocephalic atraumatic. The patient is noted to have swelling to the lower lip. Eyes: EOMI, pupils are equal round and reactive to light. Nose: Midline septum with pink mucous membranes Mouth: Dentition unremarkable. Moist mucus membranes. The patient is noted to have swelling to the right side of his tongue. Posterior oropharynx is not erythematous. No tonsillar hypertrophy. Uvula midline. Airway patent. Neck: No palpable lymphadenopathy. No nuchal rigidity. No thyromegaly. Cardiovascular: Regular rate and rhythm without murmurs, gallops, or rubs. Lungs: Clear to auscultation bilaterally. No wheezes, rhonchi, or rales. Abdomen: Soft, without tenderness to palpation in all 4 quadrants of the abdomen. No guarding, rebound, or rigidity. Normal bowel sounds are audible. No tenderness on palpation of McBurney's point. Extremities: No clubbing, cyanosis, or edema. 2+ pulses in all 4 extremities. Back: No costovertebral angle tenderness to palpation. Neurologic Exam: Grossly nonfocal. Skin Exam: No rash noted. Intact skin that is warm and dry. Data Data Last Documented VS Vital Signs Date Time Temp Pulse Resp B/P (MAP) Pulse Ox O2 Delivery O2 Flow Rate FiO2 05/25/17 04:54 16 99 Room Air 05/25/17 03:33 98.3 71 Orders Orders Complete Blood Count With Diff (05/25/17 04:28) Basic Metabolic Panel (Bmp) (05/25/17 04:28) Iv Access Insert/Monitor (05/25/17 04:28) Ecg Monitoring (05/25/17 04:28) Oximetry (05/25/17 04:28) Methylprednisolone So Succ Inj (Solumedr (05/25/17 04:30) Diphenhydramine Inj (Benadryl Inj) (05/25/17 04:30) Famotidine Inj (Pepcid Inj) (05/25/17 04:30) Fresh Frozen Plasma (Ffp) (05/25/17 04:39) Type And Screen (05/25/17 04:55) Admit Order (Ed Use Only) (05/25/17 05:06) Labs Laboratory Tests Test 05/25/17 04:25 White Blood Count 21.8 TH/MM3 Red Blood Count 4.88 MIL/MM3 Hemoglobin 14.4 GM/DL Hematocrit 42.3 % Mean Corpuscular Volume 86.7 FL Mean Corpuscular Hemoglobin 29.5 PG Mean Corpuscular Hemoglobin Concent 34.0 % Red Cell Distribution Width 14.3 % Platelet Count 355 TH/MM3 Mean Platelet Volume 9.1 FL Neutrophils (%) (Auto) 76.9 % Lymphocytes (%) (Auto) 13.9 % Monocytes (%) (Auto) 5.0 % Eosinophils (%) (Auto) 3.4 % Basophils (%) (Auto) 0.8 % Neutrophils # (Auto) 16.8 TH/MM3 Lymphocytes # (Auto) 3.0 TH/MM3 Monocytes # (Auto) 1.1 TH/MM3 Eosinophils # (Auto) 0.8 TH/MM3 Basophils # (Auto) 0.2 TH/MM3 CBC Comment DIFF FINAL Differential Comment Blood Urea Nitrogen 16 MG/DL Creatinine 0.83 MG/DL Random Glucose 91 MG/DL Calcium Level 9.2 MG/DL Sodium Level 136 MEQ/L Potassium Level 4.3 MEQ/L Chloride Level 105 MEQ/L Carbon Dioxide Level 22.0 MEQ/L Anion Gap 9 MEQ/L Estimat Glomerular Filtration Rate 98 ML/MIN MDM Medical Decision Making Medical Screen Exam Complete: Yes Emergency Medical Condition: Yes Medical Record Reviewed: Yes Differential Diagnosis Idiopathic angioedema, versus lisinopril-induced angioedema, versus allergic reaction Narrative Course During the course of the patients emergency department visit, the patients history, examination, and differential diagnosis were reviewed with the patient. The patient was placed on a cardiac rehab nurse with oximetry and frequent blood pressure monitoring. The patient had IV access obtained and blood work sent for analysis. A call was placed out at the pharmacy to evaluate for the availability of Icatibant, C1-INH, or Ecallantide. The pharmacist reports that we do not have any of these medications available. I then spoke to blood bank and requested emergency release 2 units of fresh frozen plasma. The patient was initially provided Solu-Medrol 125 mg IV, famotidine 20 mg IV, Benadryl 25 mg IV. The patient consented to the administration of fresh frozen plasma and 2 units were started in the emergency department. The patients laboratory studies were reviewed and remarkable for a white count 21.8, hemoglobin 14.4, platelets 355, neutrophils 76.9, basic metabolic profile is unremarkable. The patients results were discussed with the patient, including the plan of care. I explained that further testing and/ or monitoring is indicated based on the patients history, examination, and/ or laboratory findings. Therefore, I recommended admission for additional evaluation. The patient expressed understanding and was agreeable with this plan. The patient was admitted to the hospital in guarded condition and sent to a bed under the care of the child center assistant service. Physician Communication Physician Communication []The patient's case including history, pertinent physical examination findings , and laboratory studies were discussed with Dr. Estevez. It was agreed that the patient would be admitted to the child center assistant service. Diagnosis Primary Impression: Idiopathic angioedema Qualified Codes: T78.3XXA - Angioneurotic edema, initial encounter Admitting Information Admitting Physician Requests: Admit Angie Hall MD May 25, 2017 04:28
[2017-05-25] MEDS ORDERED: FAMOTIDINE 20 MG/2 ML VIAL IV PUSH SCH (04:30)
[2017-05-25] MEDS ORDERED: methylPREDNISolone SOD SUCC 125 MG/2 ML VIAL IV PUSH ONE (04:30)
[2017-05-25] MEDS ORDERED: diphenhydrAMINE HCL 50 MG/ML VIAL IV PUSH ONE (04:30)
[2017-05-25 04:58] LABS: AUTOMATED NEUTROPHIL # 16.8 TH/MM3 (1.8-7.7); BASOPHIL # 0.2 TH/MM3 (0-0.2); BASOPHIL % 0.8 % (0.0-2.0); EOSINOPHIL # 0.8 TH/MM3 (0-0.4); EOSINOPHIL % 3.4 % (0.0-4.0); HEMATOCRIT 42.3 % (39.0-51.0); HEMO FLAGS DIFF FINAL; LYMPH % 13.9 % (9.0-44.0); MEAN CELL VOLUME 86.7 FL (80.0-100.0); MEAN CORPUSCULAR HEMOGLOBIN 29.5 PG (27.0-34.0); NEUT % 76.9 % (16.0-70.0); PLATELET COUNT 355 TH/MM3 (150-450); RED BLOOD COUNT 4.88 MIL/MM3 (4.50-5.90); RED CELL DISTRIBUTION WIDTH 14.3 % (11.6-17.2); WHITE BLOOD COUNT 21.8 TH/MM3 (4.0-11.0)
[2017-05-25 05:28] LABS: POTASSIUM 4.3 MEQ/L (3.5-5.1)
[2017-05-25] MEDS ORDERED: MISCELLANEOUS NURSING INFORMATION XX SCH (05:45)
[2017-05-25] MEDS ORDERED: CHLORHEXIDINE GLUCONATE 2 % 1 PACK (2 CLOTHS) TOP PRN (05:45)
[2017-05-25] MEDS ORDERED: SODIUM CHLORIDE 0.9% FLUSH 10 ML FLUSH IV FLUSH PRN (05:45)
[2017-05-25] MEDS ORDERED: BISACODYL 10 MG SUPP RECTAL PRN (05:45)
[2017-05-25] MEDS ORDERED: MORPHINE SULFATE 4 MG/ML INJ IV PUSH PRN (05:45)
[2017-05-25] MEDS ORDERED: ONDANSETRON HCL 4 MG/2 ML VIAL IV PUSH PRN (05:45)
[2017-05-25] MEDS ORDERED: MAGNESIUM HYDROXIDE SUSP 30 ML CUP PO PRN (05:45)
[2017-05-25] MEDS ORDERED: RESP: ALBUTEROL 2.5 MG/IPRATROPIUM 0.5 MG NEB (PRN) INH (05:45)
[2017-05-25] MEDS ORDERED: ACETAMINOPHEN 325 MG TAB PO PRN (05:45)
[2017-05-25] MEDS ORDERED: SENNOSIDES 8.6 MG TAB PO PRN (05:45)
[2017-05-25] MEDS ORDERED: LACTULOSE SYRUP 20 GM/30 ML CUP PO PRN (05:45)
--- NOTE | 2017-05-25 05:56 | HHI.HP ---
HPI Service Critical Care Medicine Primary Care Physician No Primary Care Physician Admission Diagnosis Angioedema Diagnosis: Travel History International Travel<30 Days: No Contact w/Intl Traveler <30 Da: No Traveled to Known Affected Are: No History of Present Illness 52-year-old gentleman with the history of hypertension presents with swelling in the lips that began at 8 AM yesterday. He then noticed it was involving the right side of his tongue 1-2 hours ago which prompted him to come in to the ER. He denies any chest pain or shortness of breath. He reports having intermittent problems with this since 2006 when he was diagnosed with idiopathic angioedema. Review of Systems Constitutional: DENIES: Diaphoretic episodes, Fatigue, Fever, Weight gain, Weight loss, Chills, Dizziness, Change in appetite, Night Sweats Endocrine: DENIES: Heat/cold intolerance, Polydipsia, Polyuria, Polyphagia Eyes: DENIES: Blurred vision, Diplopia, Eye inflammation, Eye pain, Vision loss , Photosensitivity, Double Vision Ears, nose, mouth, throat: DENIES: Tinnitus, Hearing loss, Vertigo, Nasal discharge, Oral lesions, Throat pain, Hoarseness, Ear Pain, Running Nose, Epistaxis, Sinus Pain, Toothache, Odynophagia Respiratory: DENIES: Apneas, Cough, Snoring, Wheezing, Hemoptysis, Sputum production, Shortness of breath Cardiovascular: DENIES: Chest pain, Palpitations, Syncope, Dyspnea on Exertion , PND, Lower Extremity Edema, Orthopnea, Claudication Gastrointestinal: DENIES: Abdominal pain, Black stools, Bloody stools, Constipation, Diarrhea, Nausea, Vomiting, Difficulty Swallowing, Anorexia Genitourinary: DENIES: Sexual dysfunction, Urinary frequency, Urinary incontinence, Urgency, Hematuria, Dysuria, Nocturia, Penile Discharge, Testicular Pain, Testicular Swelling Musculoskeletal: DENIES: Joint pain, Muscle aches, Stiffness, Joint Swelling, Back pain, Neck pain Integumentary: DENIES: Abnormal pigmentation, Nail changes, Pruritus, Rash Hematologic/lymphatic: DENIES: Bruising, Lymphadenopathy Immunologic/allergic: DENIES: Eczema, Urticaria Neurologic: DENIES: Abnormal gait, Headache, Localized weakness, Paresthesias, Seizures, Speech Problems, Tremor, Poor Balance Psychiatric: DENIES: Anxiety, Confusion, Mood changes, Depression, Hallucinations, Agitation, Suicidal Ideation, Homicidal Ideation, Delusions Past Family Social History Allergies: Coded Allergies: No Known Allergies (Unverified Allergy, Unknown, 04/30/17) Past Medical History Hypertension Past Surgical History Testicular cancer removal in 1995 Extensive right ankle surgery Reported Medications Reported Meds & Active Scripts Active Hydrochlorothiazide 12.5 Mg Cap 12.5 Mg PO DAILY Aspirin Low Strength (Aspirin) 81 Mg Chew 162 Mg PO DAILY Metoprolol Tartrate 25 Mg Tab 25 Mg PO Q12HR Effient (Prasugrel) 10 Mg Tab 10 Mg PO DAILY Reported Isosorbide Mononitrate 20 Mg Tab 60 Mg PO DAILY Take 2 doses 7 hours apart. Norvasc (Amlodipine Besylate) 5 Mg Tab 5 Mg PO DAILY Atorvastatin (Atorvastatin Calcium) 80 Mg Tab 80 Mg PO HS Active Ordered Medications Current Medications Medications (Trade) Dose Ordered Sig/Lindsay Route PRN Reason Start Time Stop Time Status Last Admin Dose Admin Famotidine (Pepcid Inj) 20 mg ONCE IV PUSH 05/25/17 04:30 05/25/17 04:48 Family History Father at the age of 5252 years old due to [facility]. Paternal grandfather at the age of 4646 years old due to [facility]. Social History Does admit to smoking at least 1 ppd cigarettes for the past 25 years. Does admit to smoking 3 alcoholic drinks per night. Denies any illicit drug use. Physical Exam Vital Signs Vital Signs Date Time Temp Pulse Resp B/P (MAP) Pulse Ox O2 Delivery O2 Flow Rate FiO2 05/25/17 05:28 69 18 127/75 (92) 99 Room Air 05/25/17 05:13 97.7 73 18 125/75 98 05/25/17 05:11 97.7 70 20 127/75 99 05/25/17 04:54 16 99 Room Air 05/25/17 03:33 98.3 71 16 143/88 (106) 100 Room Air Physical Exam GENERAL: Well-nourished, well-developed patient. SKIN: Warm and dry. HEAD: Normocephalic. EYES: No scleral icterus. No injection or drainage. NECK: Supple, trachea midline. No JVD or lymphadenopathy. CARDIOVASCULAR: Regular rate and rhythm without murmurs, gallops, or rubs. RESPIRATORY: Breath sounds equal bilaterally. No accessory muscle use. GASTROINTESTINAL: Abdomen soft, non-tender, nondistended. MUSCULOSKELETAL: No cyanosis, or edema. BACK: Nontender without obvious deformity. NEURO EXAM: Mental Status: The patient is alert and oriented to person, place, and time with affected speech due to tongue swelling. Reflexes: Biceps, patellar, and Achilles are 2/4 bilaterally. No clonus. Laboratory Laboratory Tests Test 05/25/17 04:25 White Blood Count 21.8 Red Blood Count 4.88 Hemoglobin 14.4 Hematocrit 42.3 Mean Corpuscular Volume 86.7 Mean Corpuscular Hemoglobin 29.5 Mean Corpuscular Hemoglobin Concent 34.0 Red Cell Distribution Width 14.3 Platelet Count 355 Mean Platelet Volume 9.1 Neutrophils (%) (Auto) 76.9 Lymphocytes (%) (Auto) 13.9 Monocytes (%) (Auto) 5.0 Eosinophils (%) (Auto) 3.4 Basophils (%) (Auto) 0.8 Neutrophils # (Auto) 16.8 Lymphocytes # (Auto) 3.0 Monocytes # (Auto) 1.1 Eosinophils # (Auto) 0.8 Basophils # (Auto) 0.2 CBC Comment DIFF FINAL Differential Comment Blood Urea Nitrogen 16 Creatinine 0.83 Random Glucose 91 Calcium Level 9.2 Sodium Level 136 Potassium Level 4.3 Chloride Level 105 Carbon Dioxide Level 22.0 Anion Gap 9 Estimat Glomerular Filtration Rate 98 Result Diagram: 05/25/1742405/25/17424 Caprini VTE Risk Assessment Caprini VTE Risk Assessment: No/Low Risk (score <= 1) Caprini Risk Assessment Model Point Value = 1 Point Value = 2 Point Value = 3 Point Value = 5 Age 41-60 Minor surgery BMI > 25 kg/m2 Swollen legs Varicose veins or History of unexplained or recurrent spontaneous Oral contraceptives or hormone replacement Sepsis (< 1 month) Serious lung disease, including pneumonia (< 1 month) Abnormal pulmonary function Acute myocardial infarction Congestive heart failure (< 1 month) History of inflammatory bowel disease Medical patient at bed rest Age 61-74 Arthroscopic surgery Major open surgery (> 45 min) Laparoscopic surgery (> 45 min) Malignancy Confined to bed (> 72 hours) Immobilizing plaster cast Central venous access Age >= 75 History of VTE Family history of VTE Factor V Leiden Prothrombin [id number] Lupus anticoagulant Anticardiolipin antibodies Elevated serum homocysteine Heparin-induced thrombocytopenia Other congenital or acquired thrombophilia Stroke (< 1 month) Elective arthroplasty Hip, pelvis, or leg fracture Acute spinal cord injury (< 1 month) Prophylaxis Regimen Total Risk Factor Score Risk Level Prophylaxis Regimen 0-1 Low Early ambulation 2 Moderate Order ONE of the following: *Sequential Compression Device (SCD) *Heparin 5000 units SQ BID 3-4 Higher Order ONE of the following medications: *Heparin 5000 units SQ TID *Enoxaparin/Lovenox 40 mg SQ daily (WT < 150 kg, CrCl > 30 mL/min) *Enoxaparin/Lovenox 30 mg SQ daily (WT < 150 kg, CrCl > 10-29 mL/min) *Enoxaparin/Lovenox 30 mg SQ BID (WT < 150 kg, CrCl > 30 mL/min) AND/OR *Sequential Compression Device (SCD) 5 or more Highest Order ONE of the following medications: *Heparin 5000 units SQ TID (Preferred with Epidurals) *Enoxaparin/Lovenox 40 mg SQ daily (WT < 150 kg, CrCl > 30 mL/min) *Enoxaparin/Lovenox 30 mg SQ daily (WT < 150 kg, CrCl > 10-29 mL/min) *Enoxaparin/Lovenox 30 mg SQ BID (WT < 150 kg, CrCl > 30 mL/min) AND *Sequential Compression Device (SCD) Assessment and Plan Assessment and Plan Angioedema - H1 H2 agonists - IV steroid - C1 esterase inhibitor unavailable at [facility] - i.v steroids - monitor airways Hypertension - DC lisinopril - Continue metoprolol - Isosorbide - HCTZ - Norvasc DVT GI prophylaxis - Teds SCDs - ZULEYKA Hutson - Pepcid Critical Care: The total critical care time was 35 minutes. Time to perform other separately billable procedures was not included in the critical care time. Raffy Estevez MD May 25, 2017 05:56
[2017-05-25] MEDS: diphenhydrAMINE HCL 50 MG/ML VIAL IV PUSH SCH ×5 (06:16→20:29)
[2017-05-25] MEDS: SODIUM CHLOR 0.9% 1000 ML INJ 1,000 ML IV SCH ×2 (06:16→17:30)
[2017-05-25] MEDS: RESP: ALBUTEROL 2.5 MG/IPRATROPIUM 0.5 MG NEB (SCH) INH ×3 (08:29→20:52)
[2017-05-25] MEDS: PRASUGREL 10 MG TAB PO SCH (09:00)
[2017-05-25] MEDS: DOCUSATE SODIUM 50 MG/SENNA 8.6 MG TAB PO SCH ×2 (09:00→20:29)
[2017-05-25] MEDS: HYDROCHLOROTHIAZIDE 12.5 MG CAP PO SCH (09:00)
[2017-05-25] MEDS: ASPIRIN 81 MG CHEW TAB PO SCH (09:00)
[2017-05-25] MEDS: SODIUM CHLORIDE 0.9% FLUSH 10 ML FLUSH IV FLUSH SCH ×2 (09:00→20:30)
[2017-05-25] MEDS: amLODIPine BESYLATE 5 MG TAB PO SCH (09:00)
[2017-05-25] MEDS: ISOSORBIDE MONONITRATE 20 MG TAB PO SCH (09:00)
[2017-05-25] MEDS: METOPROLOL TARTRATE 25 MG TAB PO SCH ×2 (09:00→20:29)
[2017-05-25] MEDS: DEXAMETHASONE SOD PHOS 4 MG/ML VIAL IV PUSH SCH ×2 (12:10→17:29)
[2017-05-25] MEDS: FAMOTIDINE 20 MG/2 ML VIAL IV PUSH SCH (17:29)
[2017-05-25] MEDS: ATORVASTATIN 80 MG TAB PO SCH (20:30)
[2017-05-26] VITALS (14 sets, daily range): BP systolic 130–174; BP diastolic 63–83; PULSE 60–83; RESP 14–27; TEMP 97.5–98.4; O2SAT 94–99
[2017-05-26] MEDS: diphenhydrAMINE HCL 50 MG/ML VIAL IV PUSH SCH ×2 (01:45→05:14)
[2017-05-26] MEDS ORDERED: CHLORHEXIDINE GLUCONATE 2 % 1 PACK (2 CLOTHS) TOP SCH (04:00)
[2017-05-26] MEDS: RESP: ALBUTEROL 2.5 MG/IPRATROPIUM 0.5 MG NEB (SCH) INH ×2 (04:14→09:00)
[2017-05-26 04:50] LABS: AUTOMATED NEUTROPHIL # 17.7 TH/MM3 (1.8-7.7); BASOPHIL % 0.1 % (0.0-2.0); HEMATOCRIT 38.3 % (39.0-51.0); HEMO FLAGS DIFF FINAL; LYMPHOCYTE # 1.6 TH/MM3 (1.0-4.8); MEAN CELL VOLUME 86.3 FL (80.0-100.0); MEAN CORPUSCULAR HEMOGLOBIN 30.2 PG (27.0-34.0); MONO % 4.5 % (0.0-8.0); NEUT % 87.4 % (16.0-70.0); PLATELET COUNT 346 TH/MM3 (150-450); RED BLOOD COUNT 4.44 MIL/MM3 (4.50-5.90); RED CELL DISTRIBUTION WIDTH 13.9 % (11.6-17.2); WHITE BLOOD COUNT 20.3 TH/MM3 (4.0-11.0)
[2017-05-26 05:09] LABS: ANION GAP 9 MEQ/L (5-15); AST (GOT) 12 U/L (15-37); BICARBONATE 23.7 MEQ/L (21.0-32.0); CHLORIDE 106 MEQ/L (98-107); GLOMERULAR FILTRATION RATE 84 ML/MIN (>89); MAGNESIUM 2.4 MG/DL (1.5-2.5); SODIUM (NA) 139 MEQ/L (136-145)
[2017-05-26 05:13] LABS: ALKALINE PHOSPHATASE 146 U/L (45-117); ALT (GPT) 41 U/L (12-78); BLOOD UREA NITROGEN 14 MG/DL (7-18); TOTAL BILIRUBIN ADULT 0.3 MG/DL (0.2-1.0)
[2017-05-26] MEDS: DEXAMETHASONE SOD PHOS 4 MG/ML VIAL IV PUSH SCH ×2 (05:14)
[2017-05-26] MEDS: SODIUM CHLOR 0.9% 1000 ML INJ 1,000 ML IV SCH (05:14)
[2017-05-26] MEDS: FAMOTIDINE 20 MG/2 ML VIAL IV PUSH SCH (05:14)
[2017-05-26] MEDS: ISOSORBIDE MONONITRATE 20 MG TAB PO SCH (08:13)
[2017-05-26] MEDS: HYDROCHLOROTHIAZIDE 12.5 MG CAP PO SCH (08:14)
[2017-05-26] MEDS: DOCUSATE SODIUM 50 MG/SENNA 8.6 MG TAB PO SCH ×2 (08:14→20:44)
[2017-05-26] MEDS: amLODIPine BESYLATE 5 MG TAB PO SCH (08:14)
[2017-05-26] MEDS: METOPROLOL TARTRATE 25 MG TAB PO SCH ×2 (08:14→20:44)
[2017-05-26] MEDS: ASPIRIN 81 MG CHEW TAB PO SCH (08:14)
[2017-05-26] MEDS: PRASUGREL 10 MG TAB PO SCH (08:15)
[2017-05-26] MEDS: SODIUM CHLORIDE 0.9% FLUSH 10 ML FLUSH IV FLUSH SCH ×2 (09:00→20:44)
[2017-05-26] MEDS ORDERED: RESP: ALBUTEROL 2.5 MG/IPRATROPIUM 0.5 MG NEB (PRN) INH (09:30)
[2017-05-26] MEDS ORDERED: diphenhydrAMINE HCL 25 MG CAP PO PRN (09:30)
[2017-05-26] MEDS: DEXAMETHASONE 4 MG TAB PO SCH ×2 (10:24→20:44)
[2017-05-26] MEDS: diphenhydrAMINE HCL 25 MG CAP PO SCH ×2 (12:44→17:48)
[2017-05-26] MEDS: FAMOTIDINE 20 MG TAB PO SCH (20:44)
[2017-05-26] MEDS: ATORVASTATIN 80 MG TAB PO SCH (20:44)
[2017-05-27] VITALS: PULSE 59
[2017-05-27 04:00] VITALS: PULSE 52
[2017-05-27 04:45] VITALS: BP 143/83; PULSE 57; RESP 16; TEMP 97.8; O2SAT 96
[2017-05-27 08:00] VITALS: BP 158/91; PULSE 50; RESP 18; TEMP 97.8; O2SAT 100
[2017-05-27] MEDS: HYDROCHLOROTHIAZIDE 12.5 MG CAP PO SCH (08:40)
[2017-05-27] MEDS: amLODIPine BESYLATE 5 MG TAB PO SCH (08:41)
[2017-05-27] MEDS: METOPROLOL TARTRATE 25 MG TAB PO SCH (08:41)
[2017-05-27] MEDS: diphenhydrAMINE HCL 25 MG CAP PO SCH ×2 (08:41→12:51)
[2017-05-27] MEDS: PRASUGREL 10 MG TAB PO SCH (08:41)
[2017-05-27] MEDS: DOCUSATE SODIUM 50 MG/SENNA 8.6 MG TAB PO SCH (08:41)
[2017-05-27] MEDS: DEXAMETHASONE 4 MG TAB PO SCH (08:41)
[2017-05-27] MEDS: FAMOTIDINE 20 MG TAB PO SCH (08:41)
[2017-05-27] MEDS: ISOSORBIDE MONONITRATE 20 MG TAB PO SCH (08:41)
[2017-05-27] MEDS: ASPIRIN 81 MG CHEW TAB PO SCH (08:42)
[2017-05-27] MEDS: SODIUM CHLORIDE 0.9% FLUSH 10 ML FLUSH IV FLUSH SCH (08:42)
[2017-05-27 12:00] VITALS: BP 124/74; PULSE 57; RESP 18; TEMP 97.6; O2SAT 99
[2017-05-27 12:41] LABS: BASOPHIL % 0.1 % (0.0-2.0); EOSINOPHIL % 0.1 % (0.0-4.0); HEMATOCRIT 36.8 % (39.0-51.0); HEMO FLAGS DIFF FINAL; LYMPH % 10.1 % (9.0-44.0); LYMPHOCYTE # 1.7 TH/MM3 (1.0-4.8); MEAN CELL VOLUME 87.8 FL (80.0-100.0); MEAN CORPUSCULAR HEMOGLOBIN 28.8 PG (27.0-34.0); MEAN CORPUSCULAR HGB CONC 32.8 % (32.0-36.0); MONO % 5.4 % (0.0-8.0); NEUT % 84.3 % (16.0-70.0); PLATELET COUNT 329 TH/MM3 (150-450); RED BLOOD COUNT 4.19 MIL/MM3 (4.50-5.90); RED CELL DISTRIBUTION WIDTH 14.2 % (11.6-17.2); WHITE BLOOD COUNT 16.6 TH/MM3 (4.0-11.0)
[2017-05-27 12:58] LABS: BICARBONATE 26.2 MEQ/L (21.0-32.0); POTASSIUM 4.1 MEQ/L (3.5-5.1)
[2017-05-27 16:12] VITALS: BP 138/78; PULSE 75; RESP 18; TEMP 98.5; O2SAT 95
--- NOTE | 2017-05-27 19:12 | HHI.DS ---
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 He then noticed it was involving the right side of his tongue 1-2 hours ago which prompted him to come in to the ER. He denies any chest pain or shortness of breath. He reports having intermittent problems with this since 2006 when he was diagnosed with idiopathic angioedema. CBC/BMP: 05/27/17 1205 05/27/17 1205 Significant Findings Laboratory Tests Test 05/25/17 04:25 05/25/17 06:00 05/26/17 04:27 05/27/17 12:05 White Blood Count 21.8 TH/MM3 (4.0-11.0) 20.3 TH/MM3 (4.0-11.0) 16.6 TH/MM3 (4.0-11.0) Neutrophils (%) (Auto) 76.9 % (16.0-70.0) 87.4 % (16.0-70.0) 84.3 % (16.0-70.0) Neutrophils # (Auto) 16.8 TH/MM3 (1.8-7.7) 17.7 TH/MM3 (1.8-7.7) 14.0 TH/MM3 (1.8-7.7) Monocytes # (Auto) 1.1 TH/MM3 (0-0.9) Eosinophils # (Auto) 0.8 TH/MM3 (0-0.4) Red Blood Count 4.44 MIL/MM3 (4.50-5.90) 4.19 MIL/MM3 (4.50-5.90) Hematocrit 38.3 % (39.0-51.0) 36.8 % (39.0-51.0) Lymphocytes (%) (Auto) 8.0 % (9.0-44.0) Random Glucose 165 MG/DL (74-106) 234 MG/DL (74-106) Albumin 3.2 GM/DL (3.4-5.0) Alkaline Phosphatase 146 U/L (45-117) Aspartate Amino Transf (AST/SGOT) 12 U/L (15-37) Estimat Glomerular Filtration Rate 84 ML/MIN (>89) Hemoglobin 12.1 GM/DL (13.0-17.0) PE at Discharge AOOx3 oral cavity does not look edematous. Tongue not swollen. Clear lungs BL S1S2 RRR abdomen soft nt, nd Nontender induration on the left submandibular region Pt update on day of discharge The patient states that his swelling in his mouth has resolved. The patient is noted to have swelling over the left submandibular area. He states he has a swelling for many years and its "normal" on him. I recommended evaluation with a CT of the neck. However patient refused and asked to be discharged AGAINST MEDICAL ADVICE. Hospital Course The patient was admitted initially to intensive care unit and managed by the consultant [employer]. vice president [employer] (ex ). Lisinopril discontinued. Angioedema treated with H1 and H2 agonist, IV steroids, C1 esterase inhibitor unavailable at [facility]. There was were monitored and the patient eventually was transferred out to the medical floor where he refused apropos CT scan for some induration on the left submandibular region. For hypertension, lisinopril was discontinued, metoprolol continued as well as isosorbide and hydrochlorothiazide. Patient was placed on DVT per T prophylaxis with SCDs, aspirin, Pt Condition on Discharge: Stable Discharge Disposition: Discharge Home Discharge Time: <= 30 minutes Discharge Instructions DIET: Follow Instructions for: As Tolerated, No Restrictions Waqar Lockett MD May 27, 2017 19:12
--- NOTE | 2017-05-28 10:35 | HHI.CCPN ---
Subjective Remarks/Hospital Course Late entry for patient seen on 05/26/2017: 05/25: 52-year-old gentleman with the history of hypertension presents with swelling in the lips that began at 8 AM yesterday. He then noticed it was involving the right side of his tongue 1-2 hours ago which prompted him to come in to the ER. He denies any chest pain or shortness of breath. He reports having intermittent problems with this since 2006 when he was diagnosed with idiopathic angioedema. 05/26: Patient seen earlier in the morning. Tongue swelling gone. Speech normal. Denies any shortness of breath. Switched IV steroids and Benadryl to by mouth. Switched IV Pepcid to by mouth. Ordered transfer out of ICU with consult to hospitalist service. If angioedema and rash stay under control with transition to by mouth meds probable discharge tomorrow. Objective Vital Signs Date Time Temp Pulse Resp B/P (MAP) Pulse Ox O2 Delivery O2 Flow Rate FiO2 05/27/17 16:12 98.5 75 18 138/78 (98) 95 05/27/17 08:00 Room Air 05/25/17 08:30 21 Result Diagram: 05/27/17 1205 05/27/17 1205 Objective Remarks GENERAL: Well-nourished, well-developed patient. SKIN: Warm and dry. HEAD: Normocephalic. EYES: No scleral icterus. No injection or drainage. ENT: Tongue appears normal with no swelling. No lid swelling noted. Mucosa moist. NECK: Supple, trachea midline. No JVD or lymphadenopathy. CARDIOVASCULAR: Regular rate and rhythm without murmurs, gallops, or rubs. RESPIRATORY: Breath sounds equal bilaterally. No accessory muscle use. GASTROINTESTINAL: Abdomen soft, non-tender, nondistended. MUSCULOSKELETAL: No cyanosis, or edema. BACK: Nontender without obvious deformity. NEURO EXAM: Awake alert oriented 3, moving upper ex obese. Speech normal with no stridor. Procedures none A/P Assessment and Plan Angioedema - H1 H2 agonists -Switched to by mouth steroid, by mouth Benadryl and by mouth Pepcid - C1 esterase inhibitor unavailable at [facility] - monitor airways Hypertension - DC lisinopril - Continue metoprolol - Isosorbide - HCTZ - Norvasc DVT GI prophylaxis - Teds SCDs - Prasaquel, ASA - Pepcid Discussed at length with patient on 05/26 at bedside regarding plan of care with transitioning from IV to by mouth meds and if no further issues with angioedema probable discharge the next day. Hospitalist consult requested with transfer out of ICU. Hospitalist to assume medical care when patient transfers. Brock Rivas MD May 28, 2017 10:35
== END 2017-05-27 17:49 | disposition left against medical advice (07) | DRG 916 ==
LOC: NEPE 03:32 → NEDA 05:08 → HIME 05:55 → N04B 05-26 14:30
PROVIDERS: ADMIT Hospitalist; ATTEND Hospitalist
PROC: 30233L1 Transfusion of Nonautologous Fresh Plasma into Peripheral Vein, Percutaneous Approach (ICD-10-PCS; principal; 2017-05-25)
DX: T78.3XXA Angioneurotic edema, initial encounter (principal); I10 Essential (primary) hypertension; F17.210 Nicotine dependence, cigarettes, uncomplicated; E78.5 Hyperlipidemia, unspecified; I25.10 Atherosclerotic heart disease of native coronary artery without angina pectoris; Z85.47 Personal history of malignant neoplasm of testis; Z92.21 Personal history of antineoplastic chemotherapy; Z92.3 Personal history of irradiation; Z95.5 Presence of coronary angioplasty implant and graft
CPT/HCPCS: 36430; 80048; 80053; 83735; 84100; 85025; 86850; 86900; 86901; 87641; 94640; 94664; 96374; 96375; J1100; J1200; J2930; J7030; J8540; P9017